=== PATIENT | female | born 1955 | race Caucasian/White ===

== ENCOUNTER → 2017-03-18 | Outpatient (CLI) | payer BC ==
[~2017-03-18] MED LIST: ALBU2.5V4 IH; CALCIUM CARBONATE; FOLI100T PO; HYDR25TA4 PO; NF-ESOM40C PO; NF-TELM20T PO
[2017-03-18 11:30] LABS: BASOPHILS % (AUTO) 0 % (0-10); EOSINOPHILS % (AUTO) 0 % (0-10); LYMPHOCYTES # (AUTO) 0.9 X 10^3 (1.0-4.0); LYMPHOCYTES % (AUTO) 15 % (12-44); MEAN CORPUSCULAR HEMOGLOBIN 28 PG (25-34); MEAN CORPUSCULAR HGB CONC 33 G/DL (32-36); MEAN CORPUSCULAR VOLUME 85 FL (80-99); MEAN PLATELET VOLUME 10.1 FL (7.4-10.4); MONOCYTES # (AUTO) 0.5 X 10^3 (0.0-1.0); MONOCYTES % (AUTO) 8 % (0-12); NEUTROPHILS # (AUTO) 4.6 X 10^3 (1.8-7.8); NEUTROPHILS % (AUTO) 78 % (42-75); PLATELET COUNT 259 10^3/uL (130-400); RED BLOOD COUNT 4.52 10^6/uL (4.35-5.85); RED CELL DISTRIBUTION WIDTH 12.8 % (10.0-14.5)
[2017-03-18 12:09] LABS: ALANINE AMINOTRANSFERASE 26 U/L (0-55); ALBUMIN 4.4 G/DL (3.2-4.5); ANION GAP 8 MMOL/L (5-14); ASPARTATE AMINO TRANSFERASE 26 U/L (5-34); BILIRUBIN,TOTAL 0.4 MG/DL (0.1-1.0); BLOOD UREA NITROGEN 10 MG/DL (7-18); BUN/CREATININE RATIO 14; CALCIUM 9.8 MG/DL (8.5-10.1); CARBON DIOXIDE 30 MMOL/L (21-32); CHLORIDE 100 MMOL/L (98-107); CREATININE SERUM 0.73 MG/DL (0.60-1.30); GFR ESTIMATED > 60; GLUCOSE 91 MG/DL (70-105); POTASSIUM 3.6 MMOL/L (3.6-5.0); SODIUM 138 MMOL/L (135-145); TOTAL PROTEIN 7.7 G/DL (6.4-8.2); hs C REACTIVE PROTEIN 0.29 MG/DL (0.00-0.50)
[2017-03-18 12:45] LABS: ERYTHROCYTE SEDIMENTATION RATE 44 MM/HR (0-30)
[2017-03-19 03:31] LABS: IGE DETAIL 3.7 IU/mL
[2017-03-19 07:35] LABS: INT IGE See Footnote
[2017-03-19 07:36] LABS: IMMUNOGLOBULIN IGG 1332 mg/dL (672-1680); IMMUNOGLOBULIN IGM 192 mg/dL (47-209)
== END ==
LOC: LAB 11:05
PROVIDERS: ATTEND Internal Medicine Critical Care Medicine
DX: J44.9 Chronic obstructive pulmonary disease, unspecified (principal); J47.9 Bronchiectasis, uncomplicated; J42 Unspecified chronic bronchitis; R06.00 Dyspnea, unspecified; Z87.891 Personal history of nicotine dependence
CPT/HCPCS: 36415; 80053; 82784; 82785; 85025; 85652; 86038; 86141; 86430

== ENCOUNTER 2017-03-19 07:27 | Day surgery (SDC) | payer BC ==
[~2017-03-19] VITALS: Ht 167.6 cm; Wt 57.2 kg
[2017-03-19] MEDS ORDERED: NS IV 500 ML 500 ML IV PRN (07:37)
[2017-03-19] MEDS ORDERED: FLUMAZENIL (ROMAZICON) 0.1 MG/ML 5 ML VIAL INJ PRN (07:45)
[2017-03-19] MEDS ORDERED: LIDOCAINE 4% INJ (XYLOCAINE) 5ML AMP INJ ONE (07:45)
[2017-03-19] MEDS ORDERED: LIDOCAINE PF 1% 2 ML AMP INJ PRN (07:45)
[2017-03-19] MEDS ORDERED: NALOXONE 0.4 MG/ML 1 ML (NARCAN) VIAL IVP PRN (07:45)
[2017-03-19] MEDS ORDERED: NS IV 500 ML 500 ML ONE (07:46)
[2017-03-19 08:03] VITALS: BP 153/87
--- NOTE | 2017-03-19 08:05 | Progress Note-Pre Operative ---
Pre-Operative Progress Note H&P Reviewed The H&P was reviewed, patient examined and no changes noted. Date H&P Reviewed: March 19, 2017 Time H&P Reviewed: 08:05 Pre-Operative Diagnosis: KALPESH AVILA DO March 19, 2017 08:05
[2017-03-19 08:09] VITALS: BP 153/87
[2017-03-19] MEDS ORDERED: MIDAZOLAM 2 MG/2 ML (VERSED) VIAL ONE ×4 (08:23→08:59)
[2017-03-19] MEDS ORDERED: fentaNYL INJECTION 100 MCG/2 ML AMP ONE ×2 (08:23)
[2017-03-19] MEDS: fentaNYL INJECTION 100 MCG/2 ML AMP IVP PRN ×5 (08:45→09:03)
[2017-03-19] MEDS: MIDAZOLAM 2 MG/2 ML (VERSED) VIAL IVP PRN ×5 (08:46→09:04)
--- NOTE | 2017-03-19 09:38 | Diagnostic Imaging Report ---
INDICATION: Status post bronchoscopy. COMPARISON: None. FINDINGS: A single frontal radiographic view of the chest was obtained and demonstrates no evidence of pneumothorax or large effusion. There is no focal consolidation. The cardiac silhouette and pulmonary vasculature are within normal limits. The bony structures show no gross acute abnormalities. IMPRESSION: No pneumothorax status post bronchoscopy. Dictated by: Dictated on workstation # [id number]
[2017-03-19 09:40] VITALS: BP 123/66
[2017-03-19 10:00] VITALS: BP 128/75
[2017-03-19] MEDS ORDERED: NF-ESOM40C PO (10:15)
[2017-03-19] MEDS ORDERED: ALBU2.5V4 IH (10:15)
[2017-03-19] MEDS ORDERED: NF-TELM20T PO (10:15)
[2017-03-19] MEDS ORDERED: HYDR25TA4 PO (10:15)
[2017-03-19] MEDS ORDERED: FOLI100T PO (10:15)
[2017-03-19] MEDS ORDERED: CALCIUM CARBONATE (10:15)
[2017-03-19] MEDS ORDERED: LIDOCAINE JELLY 2% (XYLOCAINE) 30 ML TUBE TOP ONE (10:24)
[2017-03-19 10:48] VITALS: BP 128/75
--- NOTE | 2017-03-19 13:12 | Diagnostic Imaging Report ---
EXAMINATION: Intraoperative view of the chest. INDICATION: Bronchoscopy. FLUOROSCOPY TIME: 27 seconds of fluoroscopic time was provided. IMPRESSION: The provided image demonstrates a bronchoscope seen projecting over the perihilar region. The image is not labeled; however, it appears to be on the right side. Dictated by: Dictated on workstation # [id number]
--- NOTE | 2017-03-20 09:37 | Pulmonary Procedures ---
Pulmonary Procedures Date of Procedure Date of Service: March 19, 2017 Bronch Bronchoscopy with bronchoalveolar lavage (BAL), transbronchial washes and, brushes using fluoroscopy Preop DX ILD Postop DX: same Complications: none After informed consent obtained and formal time out pt was sedated using Fentanyl and Versed. Bronchoscope was advanced through the nare and vocal cords. 1% lidocaine was used to anesthetize vocal cords, epiglottis, nahid, and left/right main stem bronchus. An anatomical tour was undertaken down to the segmental bronchi bilaterally. No endobronchial lesions noted. From the RML a bronchoalveolar lavage (BAL), transbronchial washes and, brushes were obtained using fluoroscopy . Pt tolerated procedure well. No complications noted. Stat CXR is pending. KALPESH ODONNELL DO March 20, 2017 09:37
== END 2017-03-19 10:48 | disposition home or self-care (01) ==
LOC: ENDO 07:27
PROVIDERS: ATTEND Internal Medicine Critical Care Medicine
DX: J84.9 Interstitial pulmonary disease, unspecified (principal); J44.9 Chronic obstructive pulmonary disease, unspecified; Z87.891 Personal history of nicotine dependence
CPT/HCPCS: 71010; 87070; 87101; 87116; 87205

== ENCOUNTER → 2017-04-11 | Outpatient (CLI) | payer BC ==
[~2017-04-11] MED LIST changes: +RT-ALBUTEROL SULF 2.5 MG/3 ML PRE-MIX VIAL IH ONE
== END ==
LOC: RT 12:40
PROVIDERS: ATTEND Nurse Practitioner Family
DX: J47.9 Bronchiectasis, uncomplicated (principal); R06.00 Dyspnea, unspecified
CPT/HCPCS: 94060; 94640; 94726; 94729

== ENCOUNTER → 2017-04-29 | Outpatient (CLI) | payer BC ==
[~2017-04-29] MED LIST changes: -RT-ALBUTEROL SULF 2.5 MG/3 ML PRE-MIX VIAL IH ONE
== END ==
LOC: LAB 10:02
PROVIDERS: ATTEND Nurse Practitioner Family
DX: A31.0 Pulmonary mycobacterial infection (principal)
CPT/HCPCS: 36415; 86703

== ENCOUNTER → 2017-05-20 | Outpatient (CLI) | payer BC ==
[~2017-05-20] MED LIST changes: +CATHETER FLUSH 10 ML SYR IV PRN; +IOHEXOL 350 MG/ML 100 ML (OMNIPAQUE 350) VIAL IV ONE; +NS 100 ML (IVPB) BAG IV ONE
[2017-05-20 10:07] LABS: BLOOD UREA NITROGEN 6 MG/DL (7-18); BUN/CREATININE RATIO 8; CREATININE SERUM 0.75 MG/DL (0.60-1.30); GFR ESTIMATED > 60
--- NOTE | 2017-05-20 13:25 | Diagnostic Imaging Report ---
PROCEDURE: CT chest with contrast only. TECHNIQUE: Multiple contiguous axial images were obtained through the chest after administration of intravenous contrast. INDICATION: Chronic cough, COPD, emphysema, and bronchitis. COMPARISON: No priors. FINDINGS: There is mild right greater than left biapical pleural-parenchymal scarring. Some nodular infiltrate in the right middle lobe and to a lesser extent the lateral aspect of the right upper lobe suggestive of pneumonia. Within the right middle lobe, there is some mild cylindrical bronchiectasis as a chronic component. Some mild bronchiectasis in the left lower lobe where there are minimal micronodular infiltrates. There is symmetrical hyperexpansion of the lungs. There is no pneumothorax. No effusion. A vague sub-solid nodule in the right upper lobe measures 6 mm. There is no hilar or mediastinal lymphadenopathy. No thoracic effusion. The aorta is patent and nonaneurysmal. The pulmonary arterial branches are patent. IMPRESSION: Acute on chronic infiltrates with some mild cylindrical bronchiectasis. Thickening of the axial interstitium and micronodular infiltrates involve right middle greater than left lower lobes suggestive of an element of active pneumonia. A small subcentimeter nodule in the right upper lobe warrants followup. Repeat exam in 3-6 months suggested. No effusion, abscess, empyema, or adenopathy. Dictated by: Dictated on workstation # [id number]
== END ==
LOC: RAD 09:19
PROVIDERS: ATTEND Internal Medicine Critical Care Medicine
DX: R91.8 Other nonspecific abnormal finding of lung field (principal); R91.1 Solitary pulmonary nodule
CPT/HCPCS: 36415; 71260; 82565; 84520

== ENCOUNTER → 2017-07-15 12:50 | Outpatient (RCR) | payer BC ==
[2017-06-12 10:12] LABS: CREATININE SERUM 0.7 MG/DL (0.60-1.30)
[~2017-07-15 12:50] MED LIST changes: -CATHETER FLUSH 10 ML SYR IV PRN; -IOHEXOL 350 MG/ML 100 ML (OMNIPAQUE 350) VIAL IV ONE; -NS 100 ML (IVPB) BAG IV ONE
== END | disposition home or self-care (01) ==
LOC: LAB 06-12 09:00 → EDSTATUS 07-30 10:52
PROVIDERS: ATTEND Nurse Practitioner Family
DX: A31.0 Pulmonary mycobacterial infection (principal); J47.9 Bronchiectasis, uncomplicated; J44.9 Chronic obstructive pulmonary disease, unspecified
CPT/HCPCS: 36415; 82565; 84520; 87116

== ENCOUNTER 2017-07-31 13:00 | Outpatient (RCR) | payer BC | END 2017-08-02 | disposition home or self-care (01) | LOC: PULM 13:00 | PROVIDERS: ATTEND Nurse Practitioner Family | DX: J44.9 Chronic obstructive pulmonary disease, unspecified (principal); R06.00 Dyspnea, unspecified; Z87.891 Personal history of nicotine dependence | CPT/HCPCS: 99211 ==

== ENCOUNTER → 2017-09-04 | Outpatient (CLI) | payer BC ==
[~2017-09-04] MED LIST changes: +IOHEXOL 350 MG/ML 100 ML (OMNIPAQUE 350) VIAL IV ONE; +NS 100 ML (IVPB) BAG IV ONE
[2017-09-04 10:30] LABS: BLOOD UREA NITROGEN 7 MG/DL (7-18); BUN/CREATININE RATIO 9; CREATININE SERUM 0.81 MG/DL (0.60-1.30); GFR ESTIMATED > 60
--- NOTE | 2017-09-04 11:28 | Diagnostic Imaging Report ---
INDICATION: Chronic bronchitis. CT chest obtained with IV contrast bolus and compared to 05/20/17 FINDINGS: There are some borderline size nodes in the mediastinum which appear similar to the previous study. A node in the AP window measures about 11 mm which is similar to the prior study. A node just to left mainstem bronchus on the left side measured about 2.0 x 0.8 cm, also unchanged. There are no enlarged hilar nodes or axillary nodes. There is no pleural effusion. There is a small amount of fluid in the pericardium. This does appear mildly increased compared to the prior study. Lung parenchymal windows demonstrate micronodular infiltrates in the right upper lobe and right middle lobe which appears similar to the previous study. There are some micronodular infiltrates in the left lower lobe. There are some mild bronchiectatic changes in the lung bases. IMPRESSION: Scattered micronodular chronic infiltrates in both lungs as above which appears similar to the prior study of 05/20/17. The vague nodular density in the right upper lobe which was described on 05/20/17 is no longer present. Borderline size nodes in the mediastinum are present which may be reactive but has not changed from the previous study. There is no new abnormality seen. There is a mild micronodular infiltrate in the right lower lobe. Compared to the prior study of 05/20/17, the vague nodular density in the right upper lobe appears to have resolved. Dictated by: Dictated on workstation # [id number]
== END ==
LOC: RAD 08:28
PROVIDERS: ATTEND Nurse Practitioner Family
DX: J44.0 Chronic obstructive pulmonary disease with (acute) lower respiratory infection (principal); A31.0 Pulmonary mycobacterial infection
CPT/HCPCS: 36415; 71260; 82565; 84520

== ENCOUNTER 2017-10-09 13:00 | Outpatient (RCR) | payer BC ==
[~2017-10-09 13:00] MED LIST changes: -IOHEXOL 350 MG/ML 100 ML (OMNIPAQUE 350) VIAL IV ONE; -NS 100 ML (IVPB) BAG IV ONE
== END 2017-11-03 | disposition home or self-care (01) ==
LOC: PULM 13:00
PROVIDERS: ATTEND Nurse Practitioner Family
DX: J44.9 Chronic obstructive pulmonary disease, unspecified (principal); R06.00 Dyspnea, unspecified; Z87.891 Personal history of nicotine dependence

== ENCOUNTER → 2017-12-11 | Outpatient (CLI) | payer BC ==
--- NOTE | 2017-12-11 12:10 | Diagnostic Imaging Report ---
PROCEDURE: CT chest without contrast. TECHNIQUE: Multiple contiguous axial images were obtained through the chest without the use of intravenous contrast. INDICATION: Pneumonia. COMPARISON: 09/04/17 FINDINGS: Overall, the tree-in-bud infiltrates in the right upper lobe do persist but have decreased significantly from the prior examination. There is some new bronchiectasis developing in the medial right middle lobe with some reduction of the infiltrates. There has been a slight increase in infiltrates in the left lung base with some development of bronchiectasis medially. A new minimal focus of consolidation is seen in the left upper lobe. Tree-in-bud infiltrates have increased slightly in the right base. There is no pulmonary abscess. The heart size and mediastinal structures are stable. There is no lymphadenopathy. Osseous structures are age-appropriate. No pleural or pericardial effusion is seen. IMPRESSION: 1. Mixed changes with new bronchiectasis in the left medial base and right middle lobe. 2. Faint area of new consolidation in left upper lobe. 3. No pulmonary abscess identified. 4. No lymphadenopathy. Dictated by: Dictated on workstation # [id number]
== END ==
LOC: RAD 11:11
PROVIDERS: ATTEND Nurse Practitioner Family
DX: J42 Unspecified chronic bronchitis (principal); J18.1 Lobar pneumonia, unspecified organism; J47.9 Bronchiectasis, uncomplicated; A31.0 Pulmonary mycobacterial infection; Z87.891 Personal history of nicotine dependence
CPT/HCPCS: 71250

== ENCOUNTER 2018-01-08 05:37 | Outpatient (CLI) | payer BC ==
[~2018-01-08] VITALS: Ht 167.6 cm; Wt 57.2 kg
[2018-01-08] MEDS ORDERED: CETI10TA17 PO (14:35)
[2018-01-08] MEDS ORDERED: CA C1TAB80 PO (14:35)
[2018-01-08] MEDS ORDERED: NF-ESOM40C PO (14:35)
[2018-01-08] MEDS ORDERED: [UNRECOGNIZED DRUG - CODE] IH (14:35)
[2018-01-08] MEDS ORDERED: ETHA400T29 PO (14:35)
[2018-01-08] MEDS ORDERED: TELM40TA3 PO (14:35)
[2018-01-08] MEDS ORDERED: MONT10TA21 PO (14:35)
[2018-01-08] MEDS ORDERED: ERYT-96 PO (14:35)
[2018-01-08] MEDS ORDERED: L.AC1CAP6 PO (14:35)
== END 2018-01-08 14:41 ==
LOC: PREOP 05:37
PROVIDERS: ATTEND Internal Medicine Critical Care Medicine
DX: Z01.818 Encounter for other preprocedural examination (principal); J44.9 Chronic obstructive pulmonary disease, unspecified; J47.9 Bronchiectasis, uncomplicated

== ENCOUNTER → 2018-07-27 | Outpatient (CLI) | payer BC ==
[~2018-07-27] MED LIST changes: +CA C1TAB80 PO; +CETI10TA17 PO; +ERYT-96 PO; +ETHA400T29 PO; +L.AC1CAP6 PO; +MONT10TA21 PO; +TELM40TA3 PO; +[UNRECOGNIZED DRUG - CODE] IH
--- NOTE | 2018-07-27 16:04 | Diagnostic Imaging Report ---
PROCEDURE: CT chest without contrast. TECHNIQUE: Multiple contiguous axial images were obtained through the chest without the use of intravenous contrast. INDICATION: Shortness of breath and COPD. COMPARISON: Comparison made with prior examination 12/11/2017. FINDINGS: There is focal atelectasis and/or pneumonitis in the medial aspect of the left lung base as well as in the right middle lobe. Additional patchy infiltrates are seen in the lateral aspect of the right middle lobe. There is no pleural fluid. There is a small pericardial effusion. There is no pneumothorax. The visualized intra-abdominal structures are unremarkable. There is no pathologically enlarged adenopathy in the chest. IMPRESSION: 1. Focal atelectasis and/or pneumonitis in the right middle lobe and medial aspect left lung base. Additional patchy infiltrates are seen in the right middle lobe and, to a lesser degree, left lower lobe. Findings are nonspecific however likely reflect atypical pneumonia. Recommend clinical correlation and short interval followup to ensure resolution and/or stability. 2. Small pericardial effusion. Dictated by: Dictated on workstation # [id number]
== END ==
LOC: RAD 10:18
PROVIDERS: ATTEND Nurse Practitioner Family
DX: J44.9 Chronic obstructive pulmonary disease, unspecified (principal); I31.3 Pericardial effusion (noninflammatory); A31.0 Pulmonary mycobacterial infection; R91.8 Other nonspecific abnormal finding of lung field; Z87.891 Personal history of nicotine dependence
CPT/HCPCS: 71250

== ENCOUNTER → 2019-02-12 | Outpatient (CLI) | payer BC ==
[~2019-02-12] MED LIST changes: +ALBU2.5V4 NEB; +CATHETER FLUSH 10 ML SYR IV PRN; +ESOM20CA58 PO; +FLUT16SP22 NS; +FLUT1AER INH; +HOLD METFORMIN - RECEIVED CONTRAST 20 ML VIAL IV SCH; +IOHEXOL 350 MG/ML 100 ML (OMNIPAQUE 350) VIAL IV ONE; +KETO120S2 TOP; +MONT10TA24 PO; +NS 50 ML (IVPB) BAG IV ONE
[2019-02-12 11:30] LABS: SODIUM 138 MMOL/L (135-145)
[2019-02-12 11:31] LABS: ALANINE AMINOTRANSFERASE 25 U/L (0-55); ALBUMIN 4.2 GM/DL (3.2-4.5); ALKALINE PHOSPHATASE 101 U/L (40-136); BILIRUBIN,TOTAL 0.3 MG/DL (0.1-1.0); BUN/CREATININE RATIO 8; CALCIUM 9.4 MG/DL (8.5-10.1); CARBON DIOXIDE 20 MMOL/L (21-32); CHLORIDE 98 MMOL/L (98-107); CREATININE SERUM 0.71 MG/DL (0.60-1.30); GFR ESTIMATED > 60; GLUCOSE 85 MG/DL (70-105); POTASSIUM 3.8 MMOL/L (3.6-5.0); TOTAL PROTEIN 7.6 GM/DL (6.4-8.2)
--- NOTE | 2019-02-12 15:36 | Diagnostic Imaging Report ---
PROCEDURE: CT chest with and without contrast. TECHNIQUE: Multiple contiguous axial images were obtained through the chest before and after administration of intravenous contrast. Auto Exposure Controls were utilized during the CT exam to meet ALARA standards for radiation dose reduction. DATE: February 12, 2019. COMPARISON: CT chest July 27, 2018. INDICATION: 63-year-old female, hemoptysis and shortness of breath. FINDINGS: There is tree in bud nodularity in the right upper lobe, right middle lobe, right lower lobe, left lower lobe, and left upper lobe which is also present on prior CT chest exam of July 27, 2018. There is mild pleural-parenchymal scarring in the lung apices. There is a nodular opacity in the posterior aspect of the right upper lobe measuring 12 mm in size on axial image 29 which is a change since prior CT chest. There is very mild right middle lobe bronchiectasis with additional right middle lobe airspace consolidation with air bronchograms. Consolidation was present previously and is similar in overall appearance. There is an ill-defined nodular opacity with hazy adjacent consolidation in the right lower lobe on axial image 74 measuring 1.9 x 1.8 cm in size. This is new since July 27, 2018. Adjacent ill-defined nodular opacity in the right lower lobe on axial image 65 is also new as is the ill-defined right lower lobe pulmonary nodule on axial image 60. There is a left upper lobe pulmonary nodule on image 53 which measures 8 mm in size which is new. There are additional nodular opacities in the lingula on axial image 64 which are also new. There is no pneumothorax. There is no pleural effusion. There is no identified large central pulmonary embolus. There is limited evaluation for segmental and subsegmental pulmonary emboli given timing of the contrast bolus. The heart is not enlarged. There is no pericardial effusion. There are atherosclerotic calcifications. There are AP window lymph nodes which measure up to approximately 10 mm in size on axial image 39. These previously measured approximately 7 mm in short axis. There is a subcarinal lymph node on axial image 45 measuring 1.5 cm in short axis which is similar to prior exam. There are subcentimeter short axis right paratracheal lymph nodes. There is no identified abnormally enlarged axillary lymph node. The imaged portions of the upper abdomen are unremarkable in appearance. There is no identified acute bony abnormality. IMPRESSION: CT CHEST. 1. New multiple ill-defined pulmonary nodules in both lungs. Differential diagnostic considerations would include infectious and inflammatory etiologies, granulomatous processes, and potentially malignant etiology including primary lung neoplasm in metastatic disease. 2. Redemonstrated multifocal tree in bud nodularity with areas of mild bronchiectasis and grossly unchanged airspace consolidation in the right middle lobe. This likely relates to a process spreading via endobronchial means. This appearance can be seen with result of prior mycobacterial infection. This would be the leading differential diagnostic consideration. Dictated by: Dictated on workstation # [id number]
== END ==
LOC: RAD FS 10:49
PROVIDERS: ATTEND Nurse Practitioner
DX: J18.1 Lobar pneumonia, unspecified organism (principal); J47.9 Bronchiectasis, uncomplicated; R91.8 Other nonspecific abnormal finding of lung field; R04.2 Hemoptysis
CPT/HCPCS: 36415; 71270; 80053

== ENCOUNTER 2019-02-15 10:10 | Inpatient (IN) | payer BC ==
[2019-02-15] VITALS (16 sets, daily range): BP systolic 101–168; BP diastolic 64–93
[~2019-02-15] VITALS: Ht 167.6 cm; Wt 63.5 kg
[~2019-02-15 10:10] MED LIST changes: -ALBU2.5V4 NEB; -CATHETER FLUSH 10 ML SYR IV PRN; -ESOM20CA58 PO; -FLUT16SP22 NS; -FLUT1AER INH; -HOLD METFORMIN - RECEIVED CONTRAST 20 ML VIAL IV SCH; -IOHEXOL 350 MG/ML 100 ML (OMNIPAQUE 350) VIAL IV ONE; -KETO120S2 TOP; +LIDOCAINE JELLY 2% 6 ML SYRINGE TOP ONE; +LIDOCAINE PF 1% 2 ML VIAL (OR ONLY) IJ ONE; +LIDOCAINE PF 2% 5 ML (XYLOCAINE) VIAL INJ ONE; -MONT10TA24 PO; -NS 50 ML (IVPB) BAG IV ONE
[2019-02-15] MEDS ORDERED: AZITHROMYCIN 500 MG/NS 250 ML IVPB IV NR ×2 (10:42)
[2019-02-15] MEDS ORDERED: RT-ALBUTEROL/IPRATROPIUM 3 ML (DUONEB) VIAL IH PRN (10:45)
[2019-02-15] MEDS ORDERED: PIPERACILLIN/TAZO 4.5 GM/NS 100 ML IV NR ×2 (10:45)
[2019-02-15] MEDS ORDERED: TUBERCULIN ID ONE (10:45)
--- NOTE | 2019-02-15 11:03 | NUR ---
Patient resting in bed. Verbalized having previous TB skin test with negative results. I educated on our process. No further questions from the patient. Family at bed side. NO other needs at this time.
[2019-02-15 11:15] LABS: BASOPHILS % (AUTO) 0 % (0-10); EOSINOPHILS % (AUTO) 0 % (0-10); HEMATOCRIT 38 % (35-52); HEMOGLOBIN 12.5 G/DL (11.5-16.0); LYMPHOCYTES % (AUTO) 12 % (12-44); MEAN CORPUSCULAR HEMOGLOBIN 27 PG (25-34); MEAN CORPUSCULAR HGB CONC 33 G/DL (32-36); MEAN CORPUSCULAR VOLUME 82 FL (80-99); MEAN PLATELET VOLUME 9.7 FL (7.4-10.4); MONOCYTES # (AUTO) 0.7 X 10^3 (0.0-1.0); MONOCYTES % (AUTO) 9 % (0-12); NEUTROPHILS # (AUTO) 6.4 X 10^3 (1.8-7.8); NEUTROPHILS % (AUTO) 79 % (42-75); PLATELET COUNT 326 10^3/uL (130-400); RED CELL DISTRIBUTION WIDTH 13.8 % (10.0-14.5)
[2019-02-15] MEDS: NS IV 1000 ML 1,000 ML IV SCH ×2 (11:32→20:00)
[2019-02-15 11:38] LABS: ALANINE AMINOTRANSFERASE 22 U/L (0-55); ALBUMIN 4.3 GM/DL (3.2-4.5); ALKALINE PHOSPHATASE 84 U/L (40-136); BILIRUBIN,TOTAL 0.4 MG/DL (0.1-1.0); BUN/CREATININE RATIO 12; CALCIUM 9.7 MG/DL (8.5-10.1); CARBON DIOXIDE 27 MMOL/L (21-32); CHLORIDE 99 MMOL/L (98-107); CREATININE SERUM 0.78 MG/DL (0.60-1.30); GFR ESTIMATED > 60; GLUCOSE 116 MG/DL (70-105); MAGNESIUM 2.2 MG/DL (1.8-2.4); PHOSPHORUS 3.4 MG/DL (2.3-4.7); SODIUM 135 MMOL/L (135-145); TOTAL PROTEIN 7.6 GM/DL (6.4-8.2)
--- NOTE | 2019-02-15 11:42 | Diagnostic Imaging Report ---
INDICATION: Hemoptysis and pneumonia. Time of exam 1100 a.m. Correlation is made with prior exam from 01/14/2018. Heart size is stable. Airspace infiltrate has developed in the right mid lung. There may be some minimal patchy infiltrate right upper lobe as well. Left lung is fairly clear. No effusion or pneumothorax is seen. IMPRESSION: Development of patchy airspace infiltrate in the right lung consistent with pneumonia when compared with exam from 01/14/2018. Dictated by: Dictated on workstation # [id number]
[2019-02-15] MEDS: ENOXAPARIN 40 MG/0.4 ML (LOVENOX) SYR SC SCH (11:45)
[2019-02-15] MEDS: methylPREDNISolone 40 MG/ML (Solu-MEDROL) VIAL IV SCH ×3 (11:45→23:07)
[2019-02-15] MEDS: FAMOTIDINE 20 MG (PEPCID) TABLET PO SCH (11:45)
[2019-02-15 12:01] LABS: BILIRUBIN,URINE NEGATIVE (NEGATIVE); CLARITY,URINE CLEAR; COLOR,URINE YELLOW; GLUCOSE, URINE (UA) NEGATIVE (NEGATIVE); KETONES,URINE NEGATIVE (NEGATIVE); LEUKOCYTE ESTERASE ,URINE NEGATIVE (NEGATIVE); NITRITE,URINE NEGATIVE (NEGATIVE); PH,URINE 7 (5-9); PROTEIN,URINE NEGATIVE (NEGATIVE); UROBILINOGEN,URINE NORMAL (NORMAL)
[2019-02-15 12:17] LABS: BACTERIA,URINE NEGATIVE /HPF
[2019-02-15] MEDS ORDERED: MONT10TA24 PO (12:49)
[2019-02-15] MEDS ORDERED: FLUT1AER INH (12:49)
[2019-02-15] MEDS ORDERED: ALBU2.5V4 NEB (12:49)
[2019-02-15] MEDS ORDERED: FLUT16SP22 NS (12:57)
[2019-02-15] MEDS ORDERED: ESOM20CA58 PO (12:57)
[2019-02-15] MEDS ORDERED: KETO120S2 TOP (12:57)
--- NOTE | 2019-02-15 13:17 | NUR ---
WENT OVER THE EXT MED HX WITH THE PATIENT AND SHE VERIFIED HOW SHE TAKES HER MEDICATIONS. SHE TAKES THE FOLLOWING OTC: VIACTIV 2 DAILY ZYRTEC 10MG DAILY NEXIUM OTC DAILY PROBIOTIC DAILY
[2019-02-15] MEDS ORDERED: RT-ALBUTEROL/IPRATROPIUM 3 ML (DUONEB) VIAL IH SCH (14:00)
[2019-02-15] MEDS: PIPERACILLIN/TAZO 4.5 GM/NS 100 ML IV SCH ×2 (17:25)
[2019-02-15] MEDS: RT-ALBUTEROL/IPRATROPIUM 3 ML (DUONEB) VIAL IH SCH (20:48)
[2019-02-16] VITALS (18 sets, daily range): BP systolic 109–145; BP diastolic 55–79
[2019-02-16] MEDS: PIPERACILLIN/TAZO 4.5 GM/NS 100 ML IV SCH ×6 (01:55→17:42)
[2019-02-16 03:57] LABS: BASOPHILS % (AUTO) 0 % (0-10); EOSINOPHILS % (AUTO) 0 % (0-10); HEMATOCRIT 34 % (35-52); HEMOGLOBIN 11.3 G/DL (11.5-16.0); LYMPHOCYTES # (AUTO) 0.5 X 10^3 (1.0-4.0); LYMPHOCYTES % (AUTO) 8 % (12-44); MEAN CORPUSCULAR HEMOGLOBIN 27 PG (25-34); MEAN CORPUSCULAR HGB CONC 33 G/DL (32-36); MEAN CORPUSCULAR VOLUME 82 FL (80-99); MEAN PLATELET VOLUME 10.3 FL (7.4-10.4); MONOCYTES # (AUTO) 0.1 X 10^3 (0.0-1.0); MONOCYTES % (AUTO) 1 % (0-12); NEUTROPHILS # (AUTO) 5.9 X 10^3 (1.8-7.8); NEUTROPHILS % (AUTO) 91 % (42-75); PLATELET COUNT 267 10^3/uL (130-400); RED CELL DISTRIBUTION WIDTH 13.2 % (10.0-14.5); WHITE BLOOD COUNT 6.5 10^3/uL (4.3-11.0)
[2019-02-16 04:12] LABS: BUN/CREATININE RATIO 11; CARBON DIOXIDE 19 MMOL/L (21-32); CHLORIDE 108 MMOL/L (98-107); CREATININE SERUM 0.73 MG/DL (0.60-1.30); GFR ESTIMATED > 60; GLUCOSE 136 MG/DL (70-105); MAGNESIUM 2.4 MG/DL (1.8-2.4); PHOSPHORUS 2.6 MG/DL (2.3-4.7); POTASSIUM 3.8 MMOL/L (3.6-5.0); SODIUM 139 MMOL/L (135-145)
[2019-02-16] MEDS: methylPREDNISolone 40 MG/ML (Solu-MEDROL) VIAL IV SCH ×4 (04:44→21:58)
[2019-02-16] MEDS: NS IV 1000 ML 1,000 ML IV SCH ×2 (04:44→13:35)
[2019-02-16 05:43] LABS: LYMPHOCYTES % (MANUAL) 5 %; MONOCYTES % (MANUAL) 2 %; NEUTROPHILS % (MANUAL) 93 %
[2019-02-16] MEDS ORDERED: KCL 20 MEQ TAB (K-DUR) PO SCH (06:00)
[2019-02-16] MEDS ORDERED: POTASSIUM CL 10MEQ/50ML IVPB 50 ML IV SCH (06:00)
[2019-02-16] MEDS: RT-ALBUTEROL/IPRATROPIUM 3 ML (DUONEB) VIAL IH SCH ×3 (06:00→19:29)
[2019-02-16] MEDS ORDERED: MAGNESIUM 1 GM/100 ML IVPB 100 ML IV SCH (06:00)
[2019-02-16] MEDS ORDERED: MIDAZOLAM 5 MG/5 ML (VERSED) VIAL ONE (06:04)
[2019-02-16] MEDS ORDERED: fentaNYL INJECTION 100 MCG/2 ML AMP ONE (06:05)
[2019-02-16] MEDS ORDERED: MIDAZOLAM 5 MG/5 ML (VERSED) VIAL IVP ONE (06:45)
[2019-02-16] MEDS ORDERED: ALPRAZolam 0.5 MG (XANAX) TAB PO PRN (06:45)
[2019-02-16] MEDS ORDERED: guaiFENesin/CODEINE (ROBITUSSIN AC) 10ML UDC PO PRN (06:45)
[2019-02-16] MEDS ORDERED: fentaNYL INJECTION 100 MCG/2 ML AMP IVP PRN (06:45)
[2019-02-16] MEDS ORDERED: morphine INJ 4 MG/ML 1 ML (VIAL/SYRINGE) IVP PRN (06:45)
--- NOTE | 2019-02-16 06:45 | Pulmonary Procedures ---
Pulmonary Procedures Date of Procedure Date of Service: Feb 16, 2019 Bronch Bronchoscopy with bilateral bronchial washes. Preop DX Hemoptysis Postop DX: No endobronchial lesion - no signs of hemoptysis Complications: none After informed consent obtained and formal time out pt was sedated using Fentanyl and Versed. Bronchoscope was advanced through the nare and vocal cords. 1% lidocaine was used to anesthetize vocal cords, epiglottis, nahid, and left/right main stem bronchus. An anatomical tour was undertaken down to the segmental bronchi bilaterally. No endobronchial lesions noted. Bilateral bronchial washes were obtained. Pt tolerated procedure well. No complications noted. Stat CXR is pending. KALPESH ODONNELL DO Feb 16, 2019 06:45
[2019-02-16] MEDS ORDERED: fentaNYL INJECTION 100 MCG/2 ML AMP IVP ONE (06:47)
--- NOTE | 2019-02-16 06:50 | Pulmonary Consultation ---
History of Present Illness History of Present Illness Date of Consultation 02/16/19 06:45 Time Seen by Provider: 06:45 Date of Admission History of Present Illness 63yo with hx of MAC presented as direct admit from my office secondary to worsening CT of chest and hemoptysis. Pt Denies fever, NS, Chills. She has not coughed up this amount of blood in the past. She also complains of worsening SOB however no wheezing. Pt has had multiple bronchoscopies in the past. She complains of thick yellow sputum that is difficult to cough up. Pt is known to ID doctor in [place]. I am consulted for pulmonary/ICU management. Allergies and Home Medications Allergies Coded Allergies: Sulfa (Sulfonamide Antibiotics) (Unverified Allergy, Mild, 01/08/18) Home Medications Albuterol Sulfate 2.5 Mg/3 Ml Vial.neb, 3 ML NEB Q4H PRN for SHORTNESS OF BREATH , (Reported) Ca Carbonate/Vitamin D3/Vit K 1 Each Tab.chew, 2 TAB.CHEW PO DAILY, (Reported) Cetirizine HCl 10 Mg Tablet, 10 MG PO DAILY, (Reported) Esomeprazole Magnesium 20 Mg Capsule.dr, 20 MG PO DAILY, (Reported) Fluticasone Propionate 16 Gm Poplar.susp, 1 SPRAY NS DAILY PRN for ALLERGIES, ( Reported) Fluticasone/Vilanterol 1 Each Blst.w.dev, 1 PUFF INH DAILY, (Reported) Hydrochlorothiazide 25 Mg Tablet, 25 MG PO DAILY, (Reported) Ketoconazole 120 Ml Shampoo, TOP Q48H, (Reported) L.acidoph & Paracasei,B.lactis 1 Each Capsule, 1 CAP PO DAILY, (Reported) Montelukast Sodium 10 Mg Tablet, 10 MG PO DAILY, (Reported) Telmisartan 40 Mg Tablet, 40 MG PO DAILY, (Reported) Past Njuvhja-Ytyyfn-Tikuxr Hx Patient Social History Alcohol Use: Denies Use Recreational Drug Use: No Former Smoker, Quit: Jan 08, 1994 Recent Foreign Travel: No Contact w/Someone Who Travel: No Recent Hopitalizations: No Immunizations Up To Date Date of Pneumonia Vaccine: Feb 03, 2017 Date of Influenza Vaccine: Aug 18, 2017 Seasonal Allergies Seasonal Allergies: Yes Past Medical History Surgeries: Yes Hysterectomy Respiratory: Yes Chronic Bronchitis, COPD Currently Using CPAP: No Currently Using BIPAP: No Cardiac: Yes Hypertension Neurological: Yes (hx of brain aneryusm) Reproductive Disorders: No Female Reproductive Disorders: Denies 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 Sexually Transmitted Disease: No HIV/AIDS: No Genitourinary: Yes UTI-Chronic Gastrointestinal: No Gastroesophageal Reflux Musculoskeletal: No Endocrine: No HEENT: No Tinnitis Loss of Vision: Denies Hearing Impairment: Denies Cancer: No Psychosocial: No Anxiety, Depression Integumentary: No Blood Disorders: No Adverse Reaction/Blood Tranf: No Review of Systems Time Seen by Provider: 06:48 Constitutional: Sweats, Weakness, Malaise; No: Fever, Chills, Other Eyes: No: Pain, Vision change, Conjunctivae inflammation, Eyelid inflammation, Other, Redness ENT: Nose congestion; No: Ear pain, Ear discharge, Nose pain, Nose discharge, Mouth pain, Mouth swelling, Throat pain, Throat swelling, Other Respiratory: Cough, Shortness of breath, SOB with excertion, Hemoptysis, Pleuritic Pain, Sputum; No: Wheezing Cardiovascular: No: Palpitations, Orthopnea, Paroxysmal Noc. Dyspnea, Edema Gastrointestinal: No: Nausea, Vomiting, Diarrhea Neurological: Weakness Sepsis Event Evaluation Height, Weight, BMI Height: 5'6.00" Weight: 137lbs. 3.0oz. 62.886859nx; 21.2 BMI Method: Exam Exam Vital Signs Date Time Temp Pulse Resp B/P (MAP) Pulse Ox O2 Delivery O2 Flow Rate FiO2 02/16/19 06:00 67 14 145/79 (101) 100 Room Air 02/16/19 05:00 61 16 129/70 (89) 98 Room Air 02/16/19 04:00 98 Room Air 02/16/19 04:00 69 28 130/78 (95) 98 Room Air 02/16/19 04:00 97.3 02/16/19 03:00 59 28 132/68 (89) 97 Room Air 02/16/19 02:00 59 30 117/66 (83) 96 Room Air 02/16/19 01:00 65 02/16/19 01:00 65 17 109/55 (73) 96 Room Air 02/16/19 00:00 97.7 02/16/19 00:00 98 Room Air 02/16/19 00:00 62 17 129/68 (88) 97 Room Air 02/15/19 23:00 62 18 123/75 (91) 95 Room Air 02/15/19 22:00 78 21 135/69 (91) 96 Room Air 02/15/19 21:00 70 13 110/64 (79) 100 Room Air 02/15/19 20:48 95 Room Air 02/15/19 20:00 98 Room Air 02/15/19 20:00 97.3 02/15/19 20:00 74 27 141/79 (99) 97 Room Air 02/15/19 19:00 73 02/15/19 19:00 73 17 123/89 (100) 98 Room Air 02/15/19 18:00 67 16 143/73 (96) 99 Room Air 02/15/19 17:30 97.0 02/15/19 17:00 85 24 133/81 (98) 95 Room Air 02/15/19 16:31 99 Room Air 02/15/19 16:00 81 23 119/74 (89) 96 Room Air 02/15/19 15:00 76 19 122/74 (90) 95 Room Air 02/15/19 14:06 96 Room Air 02/15/19 14:00 84 32 101/74 (83) 96 Room Air 02/15/19 13:00 86 02/15/19 13:00 89 32 129/77 (94) 97 Room Air 02/15/19 12:00 75 19 120/78 (92) 96 Room Air 02/15/19 11:49 99 Room Air 02/15/19 11:00 88 20 142/90 (107) 95 Room Air 02/15/19 10:45 70 19 157/93 (114) 96 Room Air 02/15/19 10:44 99 Room Air 02/15/19 10:30 82 20 150/93 (112) 94 Room Air 02/15/19 10:24 80 02/15/19 10:10 97.1 75 19 168/85 (112) 99 Room Air I & O 02/16/19 07:00 Intake Total 1870 ml Output Total 300 ml Balance 1570 ml Height & Weight Height: 5'6.00" Weight: 137lbs. 3.0oz. 62.438788ui; 21.2 BMI Method: General Appearance: WD/WN, Anxious, Mild Distress, Thin HEENT: PERRL/EOMI, Normal ENT Inspection, Pharynx Normal Neck: Full Range of Motion, Non Tender, Supple Respiratory: No Accessory Muscle Use, No Respiratory Distress, Decreased Breath Sounds Cardiovascular: Regular Rate, Rhythm, No Edema, No Gallop Capillary Refill: Less Than 3 Seconds Gastrointestinal: normal bowel sounds, non tender, soft, no organomegaly, no pulsatile mass Extremity: Normal Capillary Refill, No Pedal Edema Neurologic/Psychiatric: Alert, Oriented x3, No Motor/Sensory Deficits Skin: Normal Color, Warm/Dry Lymphatic: No Adenopathy Results Lab Laboratory Tests 02/15/19 11:05 02/16/19 03:25 Assessment/Plan Assessment/Plan PNA and hemoptysis r/o TB - Doubt TB -TB isolation until r/o -Pt has hx of MAC not currently on treatment -Will do bronchoscopy today -Azithromycin, Zosyn -PPD pending Persistent sometimes productive cough -Robitussin AC -SVNS Hyperchloremia -Decrease IVF to KVO Mucous plugging -Bronchoscopy today -Add mucinex -SVNs COPDAE - Hx of moderate Emphysema -SVNs -montior -Solumedrol 40 IV Q12 Anxiety -Will start Xanax for now Anemia -Monitor KALPESH ODONNELL DO Feb 16, 2019 06:50
--- NOTE | 2019-02-16 07:02 | Diagnostic Imaging Report ---
INDICATION: Post bronchoscopy. COMPARISON: 02/16/2019 at 3:14 AM. FINDINGS: Right basilar heterogeneous consolidations are unchanged. No pleural effusion or pneumothorax. Normal cardiomediastinal silhouette. IMPRESSION: 1. No pneumothorax. 2. Unchanged right basilar heterogeneous consolidations. Dictated by: Dictated on workstation # [id number]
[2019-02-16] MEDS: FAMOTIDINE 20 MG (PEPCID) TABLET PO SCH (08:00)
[2019-02-16] MEDS: guaiFENesin (MUCINEX) 600 MG TAB PO SCH ×2 (08:00→21:58)
[2019-02-16] MEDS: LORATADINE (CLARITIN) 10 MG TAB PO SCH (08:00)
[2019-02-16] MEDS: AZITHROMYCIN 250 MG/NS 250 ML IVPB IV SCH ×2 (08:01)
--- NOTE | 2019-02-16 08:34 | Diagnostic Imaging Report ---
INDICATION: Hemoptysis, pneumonia.. TECHNIQUE: Single view chest 3:16 AM. CORRELATION STUDY: 02/15/2019 FINDINGS: Heart size and vasculature generally stable. Lung marroquin are hyperinflated with changes reflecting COPD. More focal superimposed infiltrate at the right mid to lower lung field persist overall appears slightly increased in severity. A few scattered patchy areas nodularity throughout the remaining lung marroquin are present. Parenchymal pulmonary destructive changes not otherwise suggested. IMPRESSION: 1. Scattered patchy infiltrates most pronounced in the right mid to lower lung field overall appears slightly increased from previous imaging. Findings are superimposed on chronic lung disease. Dictated by: Dictated on workstation # [id number]
[2019-02-16] MEDS ORDERED: methylPREDNISolone 40 MG/ML (Solu-MEDROL) VIAL IV SCH (09:00)
[2019-02-16] MEDS: NAPROXEN 250 MG (NAPROSYN) TABLET PO PRN (10:23)
[2019-02-16] MEDS: ENOXAPARIN 40 MG/0.4 ML (LOVENOX) SYR SC SCH (11:12)
--- NOTE | 2019-02-16 13:18 | History & Physical-Hospitalist ---
History of Present Illness HPI/Chief Complaint The patient is a 63-year-old white female admitted by Dr. Mcdonough to the hospitalist service. She has a past history of MAC. She states that she took this or max from April 2017 through August 2018. She recently coughed up some blood which showed a alarmed Dr. Mcdonough. She states that since she had completed her course for treatment she has gained 15 pounds and feels better than she has in the past 5 years. Source: patient, family Exam Limitations: no limitations Date Seen 02/16/19 Time Seen by a Provider: 13:10 Attending Physician Raj Bhatia MD PCP No,Local Physician Referring Physician Date of Admission Feb 15, 2019 at 10:10 Home Medications & Allergies Home Medications Reviewed patient Home Medication Reconciliation performed by pharmacy medication reconciliations certified control systems technician and/or nursing. Patients Allergies have been reviewed. Allergies Allergies Coded Allergies Sulfa (Sulfonamide Antibiotics) (Unverified Allergy, Mild, 01/08/18) Past Ctkibse-Ssgptb-Hajleb Hx Past Med/Social Hx: Reviewed Nursing Past Med/Soc Hx Patient Social History Alcohol Use: Denies Use Recreational Drug Use: No Former Smoker, Quit: Jan 08, 1994 Physical Abuse Screen: No Sexual Abuse: No Recent Foreign Travel: No Contact w/other who traveled: No Recent Hopitalizations: No Immunizations Up To Date Date of Pneumonia Vaccine: Feb 03, 2017 Date of Influenza Vaccine: Aug 18, 2017 Seasonal Allergies Seasonal Allergies: Yes Past Medical History Surgeries: Hysterectomy Currently Using CPAP: No Currently Using BIPAP: No Cardiac: Hypertension Reproductive: No Sexually Transmitted Disease: No HIV/AIDS: No Female Reproductive Disorders: Denies Hysterectomy Genitourinary: UTI-Chronic Gastrointestinal: Gastroesophageal Reflux HEENT: Tinnitis Loss of Vision: Denies Hearing Impairment: Denies Psychosocial: Anxiety, Depression History of Blood Disorders: No Adverse Reaction to Blood Billings: No Review of Systems Constitutional: no symptoms reported EENTM: no symptoms reported Respiratory: see HPI Cardiovascular: no symptoms reported Gastrointestinal: no symptoms reported Genitourinary: no symptoms reported Musculoskeletal: no symptoms reported Skin: no symptoms reported Psychiatric/Neurological: No Symptoms Reported Physical Exam Physical Exam Vital Signs Vital Signs - First Documented 02/15/19 10:10 Temp 97.1 Pulse 75 Resp 19 B/P (MAP) 168/85 (112) Pulse Ox 99 O2 Delivery Room Air Capillary Refill : Less Than 3 Seconds Height, Weight, BMI Height: 5'6.00" Weight: 137lbs. 3.0oz. 62.112824av; 21.2 BMI Method: General Appearance: No Apparent Distress, WD/WN Eyes: Bilateral Eye Normal Inspection HEENT: Normal ENT Inspection Neck: Full Range of Motion, Normal Inspection, Non Tender Respiratory: Chest Non Tender, Lungs Clear, Normal Breath Sounds, No Accessory Muscle Use, No Respiratory Distress Cardiovascular: Regular Rate, Rhythm, No Edema, No Gallop, No JVD, No Murmur, Normal Peripheral Pulses Gastrointestinal: Normal Bowel Sounds, No Organomegaly, No Pulsatile Mass, Non Tender Back: Normal Inspection, No CVA Tenderness, No Vertebral Tenderness Extremity: Normal Capillary Refill, Normal Inspection, Normal Range of Motion, Non Tender, No Calf Tenderness, No Pedal Edema Neurologic/Psychiatric: Alert, Oriented x3, No Motor/Sensory Deficits, Normal Mood/Affect Skin: Normal Color, Warm/Dry Lymphatic: No Adenopathy Results Results/Procedures Labs Laboratory Tests 02/15/19 11:05 02/16/19 03:25 Patient resulted labs reviewed. Assessment/Plan Admission Diagnosis Hemoptysis. Recent history of Mycobacterium avium complex. Admission Status: Observation Clinical Quality Measures DVT/VTE Risk/Contraindication: Risk Factor Score Per Nursin RFS Level Per Nursing on Admit: 4+=Very High RAJ BHATIA MD Feb 16, 2019 13:18
[2019-02-16] MEDS: MONTELUKAST 10 MG (SINGULAIR) TAB PO SCH (21:58)
[2019-02-17] VITALS (7 sets, daily range): BP systolic 90–154; BP diastolic 62–81
[2019-02-17] MEDS: PIPERACILLIN/TAZO 4.5 GM/NS 100 ML IV SCH ×6 (01:45→16:22)
[2019-02-17 04:43] LABS: BASOPHILS % (AUTO) 0 % (0-10); EOSINOPHILS % (AUTO) 0 % (0-10); HEMATOCRIT 31 % (35-52); HEMOGLOBIN 10.1 G/DL (11.5-16.0); LYMPHOCYTES # (AUTO) 0.7 X 10^3 (1.0-4.0); LYMPHOCYTES % (AUTO) 4 % (12-44); MEAN CORPUSCULAR HEMOGLOBIN 27 PG (25-34); MEAN CORPUSCULAR HGB CONC 33 G/DL (32-36); MEAN CORPUSCULAR VOLUME 84 FL (80-99); MEAN PLATELET VOLUME 10.4 FL (7.4-10.4); MONOCYTES # (AUTO) 0.4 X 10^3 (0.0-1.0); MONOCYTES % (AUTO) 2 % (0-12); NEUTROPHILS # (AUTO) 18.2 X 10^3 (1.8-7.8); NEUTROPHILS % (AUTO) 94 % (42-75); PLATELET COUNT 265 10^3/uL (130-400); RED CELL DISTRIBUTION WIDTH 13.9 % (10.0-14.5); WHITE BLOOD COUNT 19.3 10^3/uL (4.3-11.0)
[2019-02-17] MEDS: methylPREDNISolone 40 MG/ML (Solu-MEDROL) VIAL IV SCH ×4 (05:03→22:58)
[2019-02-17 05:07] LABS: BAND NEUTROPHILS 6 %; BASOPHILS % (MANUAL) 0 %; BUN/CREATININE RATIO 17; CALCIUM 8.5 MG/DL (8.5-10.1); CARBON DIOXIDE 20 MMOL/L (21-32); CHLORIDE 109 MMOL/L (98-107); CREATININE SERUM 0.75 MG/DL (0.60-1.30); ELLIPT/OVALOCYTES SLIGHT; EOSINOPHILS % (MANUAL) 0 %; GFR ESTIMATED > 60; GLUCOSE 136 MG/DL (70-105); LYMPHOCYTES % (MANUAL) 2 %; MONOCYTES % (MANUAL) 1 %; NEUTROPHILS % (MANUAL) 91 %; POTASSIUM 3.6 MMOL/L (3.6-5.0); SODIUM 138 MMOL/L (135-145)
[2019-02-17] MEDS: RT-ALBUTEROL/IPRATROPIUM 3 ML (DUONEB) VIAL IH SCH ×3 (06:45→19:42)
--- NOTE | 2019-02-17 07:22 | Pulmonary Progress Note ---
Subjective Time Seen by a Provider: 07:17 Subjective/Events-last exam PT still complains of hemoptysis - No sign of Blood during bronchoscopy. Sepsis Event Evaluation Height, Weight, BMI Height: 5'6.00" Weight: 140lbs. 0.0oz. 63.121766ip; 21.2 BMI Method: Exam Exam Vital Signs Date Time Temp Pulse Resp B/P (MAP) Pulse Ox O2 Delivery O2 Flow Rate FiO2 02/17/19 06:45 96 Room Air 02/17/19 04:00 96.9 55 20 138/70 (92) 97 Room Air 02/17/19 03:48 56 02/17/19 01:00 97.0 75 20 90/68 (75) 97 Room Air 02/16/19 22:01 58 130/64 (86) 97 Room Air 02/16/19 21:00 97 Room Air 02/16/19 20:00 96.8 02/16/19 19:52 53 02/16/19 19:29 99 Room Air 02/16/19 16:18 97 Room Air 02/16/19 16:00 58 22 138/73 (94) 97 Room Air 02/16/19 15:00 54 15 113/63 (80) 96 Room Air 02/16/19 14:00 63 24 124/64 (84) 99 Room Air 02/16/19 14:00 97.3 02/16/19 13:42 98 Room Air 02/16/19 13:00 65 21 133/77 (95) 99 Room Air 02/16/19 12:55 62 02/16/19 12:00 98 Room Air 02/16/19 12:00 69 34 114/71 (85) 98 Room Air 02/16/19 11:00 79 18 126/67 (86) 97 Room Air 02/16/19 10:00 74 18 134/77 (96) 99 Room Air 02/16/19 09:00 75 18 135/78 (97) 99 Room Air 02/16/19 08:34 98 Room Air 02/16/19 08:15 96.7 02/16/19 08:00 70 16 135/75 (95) 96 Room Air I & O 02/17/19 07:00 Intake Total 3820 ml Balance 3820 ml Height & Weight Height: 5'6.00" Weight: 140lbs. 0.0oz. 63.120708ed; 21.2 BMI Method: General Appearance: No Apparent Distress, WD/WN HEENT: Normal ENT Inspection Neck: Full Range of Motion, Normal Inspection, Non Tender Respiratory: Chest Non Tender, Lungs Clear, Normal Breath Sounds, No Accessory Muscle Use, No Respiratory Distress Cardiovascular: Regular Rate, Rhythm, No Edema, No Gallop, No JVD, No Murmur, Normal Peripheral Pulses Capillary Refill: Less Than 3 Seconds Gastrointestinal: normal bowel sounds, non tender, soft, no organomegaly, no pulsatile mass Extremity: Normal Capillary Refill, Normal Inspection, Normal Range of Motion, Non Tender, No Calf Tenderness, No Pedal Edema Neurologic/Psychiatric: Alert, Oriented x3, No Motor/Sensory Deficits, Normal Mood/Affect Skin: Normal Color, Warm/Dry Lymphatic: No Adenopathy Results Lab Laboratory Tests 02/15/19 11:05 02/16/19 03:25 02/17/19 03:45 Assessment/Plan Assessment/Plan PNA and hemoptysis r/o TB - Doubt TB -TB isolation until r/o -Pt has hx of MAC not currently on treatment -S/P bronchoscopy-- await C&S -Continue Azithromycin, Zosyn -PPD pending Anemia -PT may need EGD josafat if hemoptysis continues -Will D/C lovenox -Check PT, PTT, and INR -Check occult stool Persistent sometimes productive cough -Robitussin AC -SVNS Hyperchloremia -SL IVF Mucous plugging - mucinex -SVNs COPDAE - Hx of moderate Emphysema -SVNs -montior -Solumedrol 40 IV Q12 Anxiety -Will start Xanax for now Anemia -Monitor KALPESH ODONNELL DO Feb 17, 2019 07:22
[2019-02-17 07:57] LABS: INR 1.1 (0.8-1.4); PROTHROMBIN TIME PATIENT 14.8 SEC (12.2-14.7)
--- NOTE | 2019-02-17 08:52 | Diagnostic Imaging Report ---
INDICATION: Hemoptysis and pneumonia. Frontal chest obtained at 4:31 a.m. is compared to yesterday. FINDINGS: Heart is top limits normal in size. Mediastinal silhouette is unremarkable. There is diffuse interstitial prominence again noted with focal alveolar infiltrate in the right base appearing mildly worsened compared to yesterday. There is no pneumothorax or gross pleural fluid. IMPRESSION: Stable diffuse interstitial prominence with mild worsening of alveolar infiltrate in right lung base compared to the prior study. Dictated by: Dictated on workstation # [id number]
--- NOTE | 2019-02-17 09:17 | Progress Note-Hospitalist ---
Subjective HPI/CC On Admission Date Seen by Provider: Feb 17, 2019 Time Seen by Provider: 09:45 The patient is a 63-year-old white female admitted by Dr. Mcdonough to the hospitalist service. She has a past history of MAC. She states that she took this or max from April 2017 through August 2018. She recently coughed up some blood which showed a alarmed Dr. Mcdonough. She states that since she had completed her course for treatment she has gained 15 pounds and feels better than she has in the past 5 years. Objective Exam Vital Signs Vital Signs Date Time Temp Pulse Resp B/P (MAP) Pulse Ox O2 Delivery O2 Flow Rate FiO2 02/17/19 11:50 97.2 60 20 136/71 (92) 97 Room Air Capillary Refill : Less Than 3 Seconds General Appearance: No Apparent Distress, WD/WN HEENT: Normal ENT Inspection Neck: Full Range of Motion, Normal Inspection, Non Tender Respiratory: Chest Non Tender, Lungs Clear, Normal Breath Sounds, No Accessory Muscle Use, No Respiratory Distress Cardiovascular: Regular Rate, Rhythm, No Edema, No Gallop, No JVD, No Murmur, Normal Peripheral Pulses Gastrointestinal: Normal Bowel Sounds, No Organomegaly, No Pulsatile Mass, Non Tender Back: Normal Inspection, No CVA Tenderness, No Vertebral Tenderness Extremity: Normal Capillary Refill, Normal Inspection, Normal Range of Motion, Non Tender, No Calf Tenderness, No Pedal Edema Neurologic/Psychiatric: Alert, Oriented x3, No Motor/Sensory Deficits, Normal Mood/Affect Skin: Normal Color, Warm/Dry Lymphatic: No Adenopathy Results/Procedures Lab Laboratory Tests 02/17/19 03:45 Patient resulted labs reviewed. Clinical Quality Measures DVT/VTE Risk/Contraindication: Risk Factor Score Per Nursin RFS Level Per Nursing on Admit: 4+=Very High MARTIN FARR DO Feb 17, 2019 09:17
[2019-02-17] MEDS: guaiFENesin (MUCINEX) 600 MG TAB PO SCH ×2 (10:13→20:09)
[2019-02-17] MEDS: FAMOTIDINE 20 MG (PEPCID) TABLET PO SCH (10:13)
[2019-02-17] MEDS: LORATADINE (CLARITIN) 10 MG TAB PO SCH (10:13)
[2019-02-17] MEDS: AZITHROMYCIN 250 MG/NS 250 ML IVPB IV SCH ×2 (10:14)
[2019-02-17] MEDS ORDERED: ONDANSETRON 4 MG/2 ML (SDV) Z0FRAN IVP PRN (10:30)
--- NOTE | 2019-02-17 13:46 | Progress Note-Hospitalist ---
Progress Note Progress Notes/Assess & Plan Date Seen 02/17/19 Time Seen by Provider: 13:44 Assessment & Plan The patient reports that she coughed up some blood today. Previously this had not been substantiated. She does not state that she had black stools and she has not been having diarrhea. Her bronchoscopy results are pending. Her hemoglobin has fallen from 12-10. Physical exam: She is bright and alert. Lungs are clear to auscultation. CV is regular without murmur. Impression: Reported hemoptysis this morning. 2.history of MAC. Plan: May require GI endoscopy SUSAN BHATIA MD Feb 17, 2019 13:46
--- NOTE | 2019-02-17 13:59 | NUR ---
TB skin test negative. Still waiting on AFB smear and Qgold test to rule out TB and take her out of Isolation. Patient education done. Family at bedside. No other questions.
--- NOTE | 2019-02-17 14:14 | NUR ---
Patients AFB smear negative. Dr Mcdonough Notified and patient taken out of isolation. Patient educated and has not further questions. Courtney Final Operations Technician at bedside with patient. LUCAS Wellington Notified also.
--- NOTE | 2019-02-17 15:09 | NUR ---
1440 Transferred patient to 4th floor to 424. In good spirits. VSS, in no apparent distress. Receiving RN given report via phone prior and there at bedside during arrival.
--- NOTE | 2019-02-17 15:30 | NUR ---
pt is Hindu and shared about her kristy in God. States her suicided over 20 years ago, and she has a boyfriend and grandson with whom she is close. Pt received news during our visit that she was not TB positive. We thanked God together, and take out waiter/waitress offered words of encouragement.
--- NOTE | 2019-02-17 16:24 | Conscious Sedation/ASA ---
Conscious Sedation Pre-Proced Time 16:20 ASA Score 2 For ASA 3 and 4: Consider anesthesia and medical clearance. Also, for patients with a history of failed moderate sedation consider anesthesia. Airway Lungs Heart ASA score ASA 1: a normal healthy patient ASA 2: a patient with a mild systemic disease (mid diabetes, controlled hypertension, obesity ASA 3: a patient with a severe systemic disease that limits activity (angina , COPD, prior Myocardial infarction) ASA 4: a patient with an incapacitating disease that is a constant threat to life (CHF, renal failure) ASA 5: a moribund patient not expected to survive 24 hrs. (ruptured aneurysm) ASA 6: a declared brain- patient whose organs are being harvested. For emergent operations, add the letter E after the classification Mallampati Classification Grade 2 Sedation Plan Analgesia, Amnesia, Plan communicated to team members, Discussed options with patient/fam, Discussed risks with patient/fam The patient is an appropriate candidate to undergo the planned procedure, sedation, and anesthesia. The patient immediately re-assessed prior to indication. JOSI WARD MD Feb 17, 2019 16:24
--- NOTE | 2019-02-17 16:25 | Progress Note-Pre Operative ---
Pre-Operative Progress Note H&P Reviewed The H&P was reviewed, patient examined and no changes noted. Date Seen by Provider: Feb 17, 2019 Time Seen by Provider: 16:20 Date H&P Reviewed: Feb 17, 2019 Time H&P Reviewed: 16:20 Pre-Operative Diagnosis: hx brochiectasis, hemoptysis and hematamesis with hx PUD JOSI WARD MD Feb 17, 2019 16:25
--- NOTE | 2019-02-17 17:11 | CONSULTATION REPORT ---
DATE OF SERVICE: ADMITTING PHYSICIAN: Dr. Maxwell. ATTENDING MANAGING DIRECTOR ATLAS: GRACE Doty at [facility] in [place], [place]. HISTORY: The patient is a 63-year-old female with history of bronchiectasis as well as recurrent pneumonia. Pulmonology has seen her in the past for Mycobacterium avium intracellulare and was treated for this recently. She states that the bronchiectasis was diagnosed approximately 20 years ago. She does have a history of smoking, but also was exposed to secondhand smoke as well as industrial smoke living in air pollution regions of [place]. She states that she has had greater than 20 episodes of pneumonia. She reported that she developed a cough and then developed hemoptysis. After this, she is unsure what happened; however, she then states that she had an episode of vomiting, which was blood. It is unsure if this was due to the hemoptysis and she was inadvertently swallowing the blood, which caused irritation and then the episode of hemoptysis. Upon further questioning, she does have a history of peptic ulcer disease and has been on Nexium for the past 10 years. She has not had any upper endoscopy done in the past. She did have a colonoscopy performed approximately 1 year ago in [place], [place] and states that this was what she believes this to be normal. PAST MEDICAL HISTORY: Bronchiectasis, COPD, history of brain aneurysm, gastroesophageal reflux disease, peptic ulcer disease. PAST SURGICAL HISTORY: Total hysterectomy in 2000. ALLERGIES: SULFA. MEDICATIONS: 1. Albuterol breathing treatments q.4 hours p.r.n. 2. Cetirizine 10 mg daily. 3. Nexium 20 mg daily. 4. Fluticasone propionate 16 grams spray. 5. Hydrochlorothiazide 25 mg daily. 6. Montelukast 10 mg daily. 7. Telmisartan 40 mg daily. SOCIAL HISTORY: Previous smoke, quit in 1993, 20 pack years. Negative alcohol. FAMILY HISTORY: She is adopted. REVIEW OF SYSTEMS: Well-nourished female, currently in no acute distress. She is not experiencing any shortness of breath or difficulty in breathing. No chest pain or palpitations. No diaphoresis. No nausea or vomiting since admission. She did have an episode of hemoptysis, followed by hematemesis on the day of admission two days ago. No red blood per rectum. No dark tarry stools. No fever or chills. No recent inadvertent weight loss. All other review of systems is negative. PHYSICAL EXAMINATION: VITAL SIGNS: Temperature 98.7, blood pressure 137/62, pulse 69, respirations 20, pulse ox 97% on room air. CHEST: Scattered rales and rhonchi bilaterally. HEART: Regular. No murmurs. EXTREMITIES: No lower extremity edema. Negative Homans sign. ABDOMEN: Soft, nontender and nondistended. HEENT: No scleral icterus. NECK: No cervical lymphadenopathy. SKIN: Warm and dry. LABORATORY DATA: WBC 19.3, hemoglobin 10.1, hematocrit 31 and platelets 265. BUN 13 and creatinine 0.75. ASSESSMENT AND PLAN: A 63-year-old female with history of bronchiectasis, COPD as well as multiple previous histories of pneumonia and recent infection with Mycobacterium avium intracellulare, status post treatment. She did have episodes of hemoptysis and this was followed by one or two episodes of hematemesis. She also does have a history of peptic ulcer disease and has been on Nexium for the past 10 years. During this admission, we will proceed with an EGD as well as biopsies as appropriate. Job ID: [id number] DocumentID: [id number] Dictated Date: 02/17/2019 16:21:59 Hospital Monitor Date: 02/17/2019 17:10:43 Dictated By: JOSI WARD MD
[2019-02-17] MEDS: MONTELUKAST 10 MG (SINGULAIR) TAB PO SCH (20:09)
[2019-02-17] MEDS: NAPROXEN 250 MG (NAPROSYN) TABLET PO PRN (20:10)
[2019-02-18] MEDS: PIPERACILLIN/TAZO 4.5 GM/NS 100 ML IV SCH ×6 (01:02→17:06)
[2019-02-18] MEDS: methylPREDNISolone 40 MG/ML (Solu-MEDROL) VIAL IV SCH ×3 (04:46→17:06)
--- NOTE | 2019-02-18 07:45 | Pulmonary Progress Note ---
Subjective Time Seen by a Provider: 07:44 Sepsis Event Evaluation Height, Weight, BMI Height: 5'6.00" Weight: 140lbs. 0.0oz. 63.187163km; 21.2 BMI Method: Exam Exam Vital Signs Date Time Temp Pulse Resp B/P (MAP) Pulse Ox O2 Delivery O2 Flow Rate FiO2 02/17/19 23:01 98.4 52 20 131/68 (89) 97 Room Air 02/17/19 20:50 Room Air 02/17/19 19:50 98.4 67 20 130/62 (84) 97 Room Air 02/17/19 19:42 98 Room Air 02/17/19 15:20 98.7 69 20 137/62 (87) 97 Room Air 02/17/19 14:29 58 21 Room Air 02/17/19 14:26 96 Room Air 02/17/19 14:00 58 21 Room Air 02/17/19 12:39 53 02/17/19 11:50 97.2 60 20 136/71 (92) 97 Room Air 02/17/19 09:00 97 Room Air I & O 02/18/19 06:59 Intake Total 1252 ml Output Total 1300 ml Balance -48 ml Height & Weight Height: 5'6.00" Weight: 140lbs. 0.0oz. 63.594446kx; 21.2 BMI Method: General Appearance: No Apparent Distress, WD/WN HEENT: Normal ENT Inspection Neck: Full Range of Motion, Normal Inspection, Non Tender Respiratory: Chest Non Tender, Lungs Clear, Normal Breath Sounds, No Accessory Muscle Use, No Respiratory Distress Cardiovascular: Regular Rate, Rhythm, No Edema, No Gallop, No JVD, No Murmur, Normal Peripheral Pulses Capillary Refill: Less Than 3 Seconds Gastrointestinal: normal bowel sounds, non tender, soft, no organomegaly, no pulsatile mass Extremity: Normal Capillary Refill, Normal Inspection, Normal Range of Motion, Non Tender, No Calf Tenderness, No Pedal Edema Neurologic/Psychiatric: Alert, Oriented x3, No Motor/Sensory Deficits, Normal Mood/Affect Skin: Normal Color, Warm/Dry Lymphatic: No Adenopathy Results Lab Laboratory Tests 02/17/19 03:45 Assessment/Plan Assessment/Plan PNA and hemoptysis r/o TB - Doubt TB -TB testing is negative -D/C isolation -Pt has hx of MAC not currently on treatment -S/P bronchoscopy-- await C&S -Continue Azithromycin, Zosyn -PPD pending Anemia -PT may need EGD josafat if hemoptysis continues -Will D/C lovenox -Check PT, PTT, and INR -Check occult stool Persistent sometimes productive cough -Robitussin AC -SVNS Hyperchloremia -SL IVF Mucous plugging - mucinex -SVNs COPDAE - Hx of moderate Emphysema -SVNs -montior -Solumedrol Anxiety -Will start Xanax for now Anemia -Monitor KALPESH ODONNELL DO Feb 18, 2019 07:45
[2019-02-18 08:00] VITALS: BP 177/79
[2019-02-18] MEDS: RT-ALBUTEROL/IPRATROPIUM 3 ML (DUONEB) VIAL IH SCH ×2 (08:07→14:55)
[2019-02-18] MEDS: LORATADINE (CLARITIN) 10 MG TAB PO SCH (08:21)
[2019-02-18] MEDS: FAMOTIDINE 20 MG (PEPCID) TABLET PO SCH (08:21)
[2019-02-18] MEDS: guaiFENesin (MUCINEX) 600 MG TAB PO SCH (08:21)
[2019-02-18] MEDS ORDERED: AZITHROMYCIN 250 MG TAB (ZITHROMAX) PO SCH (09:00)
--- NOTE | 2019-02-18 09:32 | Progress Note-Hospitalist ---
Subjective HPI/CC On Admission Date Seen by Provider: Feb 18, 2019 Time Seen by Provider: 09:45 The patient is a 63-year-old white female admitted by Dr. Mcdonough to the hospitalist service. She has a past history of MAC. She states that she took this or max from April 2017 through August 2018. She recently coughed up some blood which showed a alarmed Dr. Mcdonough. She states that since she had completed her course for treatment she has gained 15 pounds and feels better than she has in the past 5 years. Subjective/Events-last exam Patient will have EGD today Overall feels much better Dr. Mcdonough told her she has a right lower lobe pneumonia Had some blood come out of her mouth whether that was from lung or esophagus yesterday but none today Denies any pain Son at bedside Review of Systems Pulmonary: Cough Objective Exam Vital Signs Vital Signs Date Time Temp Pulse Resp B/P (MAP) Pulse Ox O2 Delivery O2 Flow Rate FiO2 02/18/19 08:08 95 Room Air 02/17/19 23:01 98.4 52 20 131/68 (89) Capillary Refill : Less Than 3 Seconds General Appearance: No Apparent Distress, WD/WN HEENT: Normal ENT Inspection Neck: Full Range of Motion, Normal Inspection, Non Tender Respiratory: Chest Non Tender, Lungs Clear, Normal Breath Sounds, No Accessory Muscle Use, No Respiratory Distress, Decreased Breath Sounds Cardiovascular: Regular Rate, Rhythm, No Edema, No Gallop, No JVD, No Murmur, Normal Peripheral Pulses Gastrointestinal: Normal Bowel Sounds, No Organomegaly, No Pulsatile Mass, Non Tender Back: Normal Inspection, No CVA Tenderness, No Vertebral Tenderness Extremity: Normal Capillary Refill, Normal Inspection, Normal Range of Motion, Non Tender, No Calf Tenderness, No Pedal Edema Neurologic/Psychiatric: Alert, Oriented x3, No Motor/Sensory Deficits, Normal Mood/Affect Skin: Normal Color, Warm/Dry Lymphatic: No Adenopathy Results/Procedures Lab Patient resulted labs reviewed. Assessment/Plan Assessment and Plan Assess & Plan/Chief Complaint Assessment: RLL Pneumonia and hemoptysis no TB Cough AECOPD Anxiety Anemia Plan: EGD Monitor hgb Diagnosis/Problems Diagnosis/Problems (1) Pneumonia of right lower lobe due to infectious organism Status: Acute (2) Hemoptysis Status: Acute (3) Hematemesis Status: Acute (4) Chronic bronchitis with COPD (chronic obstructive pulmonary disease) Status: Chronic Clinical Quality Measures DVT/VTE Risk/Contraindication: Risk Factor Score Per Nursin RFS Level Per Nursing on Admit: 4+=Very High MARTIN FARR DO Feb 18, 2019 09:32
--- NOTE | 2019-02-18 09:39 | Diagnostic Imaging Report ---
Indication: Lower respiratory infection Portable chest 8:17 AM There is some faint infiltrate present in the right lower lung. This is improved slightly from the previous day. Left lung remains clear. There is no effusion. Impression: Improving right lower lobe pneumonia. Dictated by: Dictated on workstation # [id number]
--- NOTE | 2019-02-18 14:56 | NUR ---
TO ENDO PER W/C.
[2019-02-18] MEDS ORDERED: LIDOCAINE JELLY 2% 6 ML SYRINGE ONE (15:04)
[2019-02-18] MEDS ORDERED: MIDAZOLAM 2 MG/2 ML (VERSED) VIAL ONE ×6 (15:04→15:20)
[2019-02-18] MEDS ORDERED: fentaNYL INJECTION 100 MCG/2 ML AMP ONE (15:04)
[2019-02-18] MEDS ORDERED: HURRICAINE EXT TUBE (BENZOCAINE) ONE (15:05)
[2019-02-18] MEDS ORDERED: NS IV 500 ML 500 ML IV PRN (15:45)
[2019-02-18] MEDS ORDERED: MIDAZOLAM 2 MG/2 ML (VERSED) VIAL IVP ONE (15:45)
[2019-02-18] MEDS ORDERED: LIDOCAINE JELLY 2% 6 ML SYRINGE MM PRN (15:45)
[2019-02-18] MEDS ORDERED: fentaNYL INJECTION 100 MCG/2 ML AMP IVP ONE (15:45)
[2019-02-18] MEDS ORDERED: HURRICAINE EXT TUBE (BENZOCAINE) XX PRN (15:45)
--- NOTE | 2019-02-18 15:45 | Progress Note-Post Operative ---
Post-Operative Progess Note Surgeon (s)/Transplant Immunologist (s) Surgeon JOSI WARD MD Transplant Immunologist: none Pre-Operative Diagnosis hx brochiectasis, hemoptysis and hematamesis with hx PUD Post-Operative Diagnosis reflux esophagitis(stage 2), moderate-large HH with small chidi ulcer, antral ulcer(3-4mm). Procedure & Operative Findings Date of Procedure 02/18/19 Procedure Performed/Findings EGD with bx. Anesthesia Type CS Estimated Blood Loss Estimated blood loss (mL): minimal Specimens/Packing Specimens Removed ge jxn, antral ulcer JOSI WARD MD Feb 18, 2019 15:44
[2019-02-18] MEDS ORDERED: SUCR1TAB36 PO (15:55)
[2019-02-18] MEDS ORDERED: PANT40TA2 PO (15:55)
--- NOTE | 2019-02-18 15:57 | Discharge Inst-Surgical ---
D/C Lap Instructions-KIDO New, Converted, or Re-Newed RX: RX on Chart Follow Up Appt in 2 weeks Activity as tolerated protonix 40mg daily, carafate 1g QID for 2 weeks then PRN High Fiber Diet 25g or more per day Avoid Alcohol, Caffeine, Spicy [place] and Acid foods. Drink 64 fluid oz or more of fluids per day. Symptoms to Report: Fever over 101 degree F, Nausea/Vomiting If any problems/questions: Contact your physician or go to Emergency Room JOSI WARD MD Feb 18, 2019 15:57
[2019-02-18 16:00] VITALS: BP 157/78
[2019-02-18] MEDS ORDERED: SUCRALFATE 1 GM (CARAFATE) TAB PO SCH (16:00)
--- NOTE | 2019-02-18 16:13 | NUR ---
RET'D FROM ENDO. EDUCATION ON PEPTIC ULCER/BLAND DIET. ORDER REC'D FROM DR. WARD FOR OK WITH DC PENDING ATTENDING. BOTH DR. ODONNELL AND DR. FARR NOTIFIED. WILL AWAIT DC ORDERS.
[2019-02-18] MEDS ORDERED: AMOX-358 PO (16:21)
--- NOTE | 2019-02-18 16:22 | Discharge Summary-Hospitalist ---
Diagnosis/Chief Complaint Date of Admission Feb 15, 2019 at 10:10 Date of Discharge Discharge Date: Feb 18, 2019 Admission Diagnosis Hemoptysis. Recent history of Mycobacterium avium complex. Discharge Diagnosis (1) Pneumonia of right lower lobe due to infectious organism Status: Acute (2) Hemoptysis Status: Acute (3) Hematemesis Status: Acute (4) Chronic bronchitis with COPD (chronic obstructive pulmonary disease) Status: Chronic (5) Antral ulcer Status: Acute Discharge Summary Discharge Physical Exam Allergies: Coded Allergies: Sulfa (Sulfonamide Antibiotics) (Unverified Allergy, Mild, 01/08/18) Vitals & I&Os Vital Signs Date Time Temp Pulse Resp B/P (MAP) Pulse Ox O2 Delivery O2 Flow Rate FiO2 02/18/19 16:00 98.1 55 20 157/78 (104) 96 Room Air 02/18/19 15:45 3 General Appearance: No Apparent Distress, WD/WN HEENT: No PERRL/EOMI, No TMs Normal, No Normal ENT Inspection, No Pharynx Normal, No Moist Mucous Membranes, No Pale Conjunctivae (L), No Pale Conjunctivae (R), No Pharyngeal Erythema, No Photophobia, No Scleral Icterus (L) , No Scleral Icterus (R), No TM Abnormal (L), No TM Abnormal (R), No Tonsillar Exudate, No Tonsillar Enlargement, No Other Respiratory: Chest Non Tender, Lungs Clear, Normal Breath Sounds, No Accessory Muscle Use, No Respiratory Distress Hospital Course Hospital course: patient had a lengthy course most of it in isolation due to r/ o TB. Patient had h/o MAC so DR Mcdonough was consulted and bronch performed so cultures grew Staph and nares were negative for MRSA. Patient required EGD by Dr Anderson due to hematemesis and that revealed antral ulcers so she was deemed stable to DC on PPI and Carafate and Augmentin for 5 more days with close f/u with Pulmonology. Labs (last 24 hrs) Laboratory Tests 02/18/19 07:25: 02/18/19 11:50: Stool Occult Blood Immunoassay NEGATIVE Microbiology 02/16/19 Gram Stain - Final, Resulted 02/16/19 Bronchial Culture - Preliminary, Resulted Staphylococcus aureus Usual upper respiratory vipul 02/16/19 Fungal Culture 1 - Preliminary, Resulted Patient resulted labs reviewed. Pending Labs Laboratory Tests 02/18/19 11:50: Stool Occult Blood Immunoassay NEGATIVE Discussion & Recommendations Discharge Planning: <30 minutes discharge planning Discharge Home Medications: Active Scripts Active Augmentin 875-125 Tablet (Amoxicillin/Potassium Clav) 1 Each Tablet 1 Each PO BID Carafate (Sucralfate) 1 Gm Tablet 1 Gm PO QID Protonix (Pantoprazole Sodium) 40 Mg Tablet.dr 40 Mg PO DAILY Reported Fluticasone Propionate 16 Gm [place].susp 1 [place] NS DAILY PRN Ketoconazole 120 Ml Shampoo TOP Q48H Albuterol Sulfate 2.5 Mg/3 Ml Vial.neb 3 Ml NEB Q4H PRN Breo Ellipta 100-25 Mcg INH (Fluticasone/Vilanterol) 1 Each Blst.w.dev 1 Puff INH DAILY Montelukast Sodium 10 Mg Tablet 10 Mg PO DAILY Probiotic (L.acidoph & Paracasei,B.lactis) 1 Each Capsule 1 Cap PO DAILY Viactiv Soft Chew Tablet (Ca Carbonate/Vitamin D3/Vit K) 1 Each Tab.chew 2 Tab.chew PO DAILY Cetirizine HCl 10 Mg Tablet 10 Mg PO DAILY Telmisartan 40 Mg Tablet 40 Mg PO DAILY Hydrochlorothiazide 25 Mg Tablet 25 Mg PO DAILY Instructions to patient/family Please see electronic discharge instructions given to patient. Clinical Quality Measures DVT/VTE Risk/Contraindication: Risk Factor Score Per Nursin RFS Level Per Nursing on Admit: 4+=Very High MARTIN FARR DO Feb 18, 2019 16:22
--- NOTE | 2019-02-18 16:23 | NUR ---
Learning Services Coordinator follow up with pt and her "boyfriend", Osmany. Pt was being transferred to 4th floor. She said the source of her bleeding may be ulcers. Offered active listening and compassionate presence.
--- NOTE | 2019-02-18 17:31 | NUR ---
VENKATESH DIET WITHOUT DIFFICULTY. RX AND INST AND VERBALIZED UNDERSTANDING. DC'D PER WC WITH STAFF.
--- NOTE | 2019-02-18 22:40 | OPERATIVE REPORT ---
DATE OF SERVICE: 02/18/2019 ATTENDING PRIMARY CUTTING AND PRINTING MACHINE OPERATOR: Sushila Porter APRN at [facility] in [place], [place]. PREOPERATIVE DIAGNOSES: Hemoptysis and hematemesis. POSTOPERATIVE DIAGNOSES: Reflux esophagitis stage II, moderate to large size hiatal hernia approximately 3 to 4 cm in size with a small Jose Carlos ulcer, which is healed and not bleeding. Moderate gastritis with a small antral ulcer approximately 3 to 4 mm in size. No active bleeding identified. Pylorus and duodenum appeared normal. PROCEDURE: EGD with biopsy. SURGEON: Josi Ward MD ANESTHESIA: Conscious sedation. ESTIMATED BLOOD LOSS: Minimal. FINDINGS: As above in the postoperative diagnosis. DISPOSITION: The patient tolerated the procedure well. INDICATIONS: The patient is a 63-year-old female with history of bronchiectasis as well as recurrent pneumonia. She has been seen by pulmonology in the past for Mycobacterium avium intracellulare and was treated recently for this. She states that she has had bronchiectasis diagnosed approximately 20 years ago as well. She does have a smoking history; however, also states that she was exposed to secondhand smoke and industrial smoke living in air polluted regions of [place]. She states that she has had a greater than 20 episodes of pneumonia. She developed a cough and then developed hemoptysis and after this, she is unsure what happened; however, states that she did have an episode of vomiting and felt that there was blood in this as well. She does have a history of peptic ulcer disease and has been taking Nexium for the past 10 years. She did have a colonoscopy performed approximately one year ago in [place], [place], and states that this was normal. DESCRIPTION OF PROCEDURE: The patient was brought to the endoscopy suite, laid in left lateral decubitus position with head slightly elevated. After adequate IV pain and sedative medications and conscious sedation anesthesia, the mouthpiece was applied. The endoscope was placed in the mouth, visualizing the pharynx and hypopharyngeal region. Vocal cords, epiglottis and vallecula identified and appeared to be normal. The endoscope was gently intubated at the esophageal opening and esophagus insufflated. The endoscope was then advanced to the first, second and third portions of the esophagus. At the level of the GE junction, a reflux esophagitis stage II identified. The GE junction was intrathoracic consistent with a hiatal hernia. Within the intrathoracic portion of the stomach, there was a small healed ulcer consistent with a previous Jose Carlos ulcer. A biopsy was taken of the GE junction with forceps with visualization of good hemostasis. The endoscope was then advanced through the stomach and endoscope retroflexed visualizing a hiatal hernia approximately 3 to 4 cm in size. A moderate severity gastritis was noted. There was also a small ulcer with overlying fibrin clot identified in the antral region approximately 3 to 4 mm in size. This was biopsied with forceps with visualization of good hemostasis. The endoscope was then advanced to the pylorus and the first and second portion of the duodenum, which appeared normal with no distal obstructions or any duodenal ulcerations. The endoscope was then slowly withdrawn while taking a second look and suctioning of residual air with no additional findings. The patient tolerated the procedure well. We will recommend medical management with the necessary lifestyle and diet accommodation including small and more frequent meals, avoidance of eating at night as well as head elevation while lying supine. She also needs to avoid caffeinated beverages, spicy, greasy and acidic foods. We feel that due to the significant sized hiatal hernia as well as the Jose Carlos and gastric ulcer, we will recommend up stronger PPI acid line erector apprentice and start Protonix 40 mg daily as well as Carafate 1 gram q.i.d. for the next two weeks. She also does have significant size hiatal hernia, which appears to be symptomatic as well. Due to the size of the hernia and her symptoms, she would be a candidate for a hiatal hernia repair. However, before proceeding with this, we had to rule out any esophageal dysmotility disorders with an esophageal manometry study. We will have her follow up in office in approximately 2 weeks. Job ID: [id number] DocumentID: [id number] Dictated Date: 02/18/2019 15:53:51 Scientific Programmer Analyst Date: 02/18/2019 22:39:46 Dictated By: JOSI WARD MD [facility] HOSPITALRadha
== END 2019-02-18 17:32 | disposition home or self-care (01) | DRG 193 ==
LOC: ICU 10:10 → 4TH 02-17 14:55
PROVIDERS: ADMIT Internal Medicine; ATTEND Internal Medicine
PROC: 0B938ZX Drainage of Right Main Bronchus, Via Natural or Artificial Opening Endoscopic, Diagnostic (ICD-10-PCS; principal; 2019-02-16)
PROC: 0B978ZX Drainage of Left Main Bronchus, Via Natural or Artificial Opening Endoscopic, Diagnostic (ICD-10-PCS; 2019-02-16)
PROC: 0DB48ZX Excision of Esophagogastric Junction, Via Natural or Artificial Opening Endoscopic, Diagnostic (ICD-10-PCS; 2019-02-18)
PROC: 0DB78ZX Excision of Stomach, Pylorus, Via Natural or Artificial Opening Endoscopic, Diagnostic (ICD-10-PCS; 2019-02-18)
DX: J18.9 Pneumonia, unspecified organism (principal); J44.0 Chronic obstructive pulmonary disease with (acute) lower respiratory infection; J44.1 Chronic obstructive pulmonary disease with (acute) exacerbation; K25.0 Acute gastric ulcer with hemorrhage; R04.2 Hemoptysis; K21.0 Gastro-esophageal reflux disease with esophagitis; K44.9 Diaphragmatic hernia without obstruction or gangrene; J98.09 Other diseases of bronchus, not elsewhere classified; D64.9 Anemia, unspecified; J30.2 Other seasonal allergic rhinitis; E87.8 Other disorders of electrolyte and fluid balance, not elsewhere classified; I10 Essential (primary) hypertension; F41.9 Anxiety disorder, unspecified; F32.9 Major depressive disorder, single episode, unspecified; H93.19 Tinnitus, unspecified ear; Z87.11 Personal history of peptic ulcer disease; Z87.891 Personal history of nicotine dependence; Z77.22 Contact with and (suspected) exposure to environmental tobacco smoke (acute) (chronic); Z77.29 Contact with and (suspected) exposure to other hazardous substances; Z86.19 Personal history of other infectious and parasitic diseases; Z86.79 Personal history of other diseases of the circulatory system
CPT/HCPCS: 36415; 71045; 80048; 80053; 81000; 82274; 83735; 83880; 84100; 85007; 85025; 85027; 85610; 85730; 86480; 87015; 87070; 87081; 87101; 87116; 87205; 87206; 94640; 94760

== ENCOUNTER → 2019-04-12 | Outpatient (CLI) | payer BC ==
[~2019-04-12] MED LIST changes: +ALBU2.5V4 NEB; +AMOX-358 PO; +ESOM20CA58 PO; +FLUT16SP22 NS; +FLUT1AER INH; +HOLD METFORMIN - RECEIVED CONTRAST 20 ML VIAL IV SCH; +IOHEXOL 350 MG/ML 100 ML (OMNIPAQUE 350) VIAL IV ONE; +KETO120S2 TOP; -LIDOCAINE JELLY 2% 6 ML SYRINGE TOP ONE; -LIDOCAINE PF 1% 2 ML VIAL (OR ONLY) IJ ONE; -LIDOCAINE PF 2% 5 ML (XYLOCAINE) VIAL INJ ONE; +MONT10TA24 PO; +NS 100 ML (IVPB) BAG IV ONE; +PANT40TA2 PO; +SUCR1TAB36 PO
[2019-04-12 08:44] LABS: BUN/CREATININE RATIO 9; CREATININE SERUM 0.77 MG/DL (0.60-1.30); GFR ESTIMATED > 60
[2019-04-12 12:28] LABS: BASOPHILS % (AUTO) 0 % (0-10); EOSINOPHILS % (AUTO) 1 % (0-10); HEMATOCRIT 38 % (35-52); HEMOGLOBIN 12.5 G/DL (11.5-16.0); LYMPHOCYTES # (AUTO) 0.7 X 10^3 (1.0-4.0); LYMPHOCYTES % (AUTO) 21 % (12-44); MEAN CORPUSCULAR HEMOGLOBIN 27 PG (25-34); MEAN CORPUSCULAR HGB CONC 33 G/DL (32-36); MEAN CORPUSCULAR VOLUME 82 FL (80-99); MEAN PLATELET VOLUME 10.6 FL (7.4-10.4); MONOCYTES # (AUTO) 0.5 X 10^3 (0.0-1.0); MONOCYTES % (AUTO) 13 % (0-12); NEUTROPHILS # (AUTO) 2.3 X 10^3 (1.8-7.8); NEUTROPHILS % (AUTO) 65 % (42-75); PLATELET COUNT 296 10^3/uL (130-400); RED CELL DISTRIBUTION WIDTH 13.9 % (10.0-14.5); WHITE BLOOD COUNT 3.5 10^3/uL (4.3-11.0)
--- NOTE | 2019-04-12 16:12 | Diagnostic Imaging Report ---
PROCEDURE: CT chest with contrast only. TECHNIQUE: Multiple contiguous axial images were obtained through the chest after administration of intravenous contrast. Auto Exposure Controls were utilized during the CT exam to meet ALARA standards for radiation dose reduction. INDICATION: Nodularity. COMPARISON: Exam compared with study 02/12/2019. FINDINGS: Five-lobed scattered tree-in-bud nodularity and infiltrates show a mild interval reduction but have not resolved. Some partial bronchiectasis in the right middle lobe with some associated chronic consolidation perifissural is also an unchanged finding. No dominant soft tissue density lung mass. No effusion or pneumothorax. No lymphadenopathy. Aorta is nonaneurysmal. IMPRESSION: Improvements in tree-in-bud and nodular interstitial infiltrates with no adverse interval development. Some chronic consolidation and bronchiectasis involving the perifissural right middle lobe, stable. No adverse development. Air trapping symmetric stable and chronic. Dictated by: Dictated on workstation # [id number]
== END ==
LOC: RAD 08:13
PROVIDERS: ATTEND Nurse Practitioner Family
DX: J18.1 Lobar pneumonia, unspecified organism (principal); J44.9 Chronic obstructive pulmonary disease, unspecified; R04.2 Hemoptysis; R91.1 Solitary pulmonary nodule; Z86.19 Personal history of other infectious and parasitic diseases; Z87.891 Personal history of nicotine dependence
CPT/HCPCS: 36415; 71260; 82565; 84520; 85025

== ENCOUNTER 2019-06-13 10:30 | Emergency (ER) | payer BC ==
[~2019-06-13] VITALS: Ht 167.6 cm; Wt 57.2 kg
[~2019-06-13 10:30] MED LIST changes: -CA C1TAB80 PO; -HOLD METFORMIN - RECEIVED CONTRAST 20 ML VIAL IV SCH; -IOHEXOL 350 MG/ML 100 ML (OMNIPAQUE 350) VIAL IV ONE; -NS 100 ML (IVPB) BAG IV ONE; +VIACTIV SOFT C1 EAC1 PO
[2019-06-13] MEDS ORDERED: NS IV 1000 ML 1,000 ML IV SCH (12:00)
--- NOTE | 2019-06-13 12:02 | ED Cough/URI ---
General Chief Complaint: Coughing up blood Stated Complaint: COUGHING UP BLOOD Nursing Triage Note: Patient reports coughing up blood x 3 days. patient reports being diagnosed with bleeding ulcer in February Sepsis Screen: No Definite Risk Source: patient, family History of Present Illness Date Seen by Provider: Jun 13, 2019 Time Seen by Provider: 12:00 Initial Comments This 63-year-old female presents with hemoptysis of 3 days' duration. Patient has had a small amount of old blood that she coughs up frequently throughout the day. The patient denies fever or chills. She's had no persistent or localized chest discomfort. Recent past medical history of significance includes a bleeding ulcer cared for by Dr. WARD. Patient is on Protonix and Carafate. She denies significant abdominal pain. She denies black or tarry stools. Patient denies history of bleeding disorder. Allergies and Home Medications Allergies Coded Allergies: Sulfa (Sulfonamide Antibiotics) (Unverified Allergy, Mild, 01/08/18) Home Medications Albuterol Sulfate 2.5 Mg/3 Ml Vial.neb, 3 ML NEB Q4H PRN for SHORTNESS OF BREATH, (Reported) Ca Carbonate/Vitamin D3/Vit K 1 Each Tab.chew, 2 TAB.CHEW PO DAILY, (Reported) Cetirizine HCl 10 Mg Tablet, 10 MG PO DAILY, (Reported) Fluticasone Propionate 16 Gm [place].susp, 1 [place] NS DAILY PRN for ALLERGIES, (Reported) Fluticasone/Vilanterol 1 Each Blst.w.dev, 1 PUFF INH DAILY, (Reported) Hydrochlorothiazide 25 Mg Tablet, 25 MG PO DAILY, (Reported) Ketoconazole 120 Ml Shampoo, TOP Q48H, (Reported) L.acidoph & Paracasei,B.lactis 1 Each Capsule, 1 CAP PO DAILY, (Reported) Montelukast Sodium 10 Mg Tablet, 10 MG PO DAILY, (Reported) Pantoprazole Sodium 40 Mg Tablet.dr, 40 MG PO DAILY Prescribed by: JOSI WARD on 02/18/191554 Sucralfate 1 Gm Tablet, 1 GM PO QID Prescribed by: JOSI WARD on 02/18/19 155 Telmisartan 40 Mg Tablet, 40 MG PO DAILY, (Reported) Patient Home Medication List Home Medication List Reviewed: Yes Review of Systems Review of Systems Constitutional: No chills, No fever EENTM: No hearing loss Respiratory: see HPI, cough, hemoptysis Cardiovascular: No chest pain, No edema, No palpitations Gastrointestinal: abdominal pain (LUQ); No dysphagia, No nausea, No vomiting Genitourinary: No decreased output, No dysuria, No frequency Musculoskeletal: No back pain Skin: No rash Psychiatric/Neurological: No Symptoms Reported Hematologic/Lymphatic: No Symptoms Reported Immunological/Allergic: no symptoms reported Past Ilgakft-Xyusjr-Yyouuh Hx Past Med/Social Hx: Reviewed Nursing Past Med/Soc Hx Patient Social History Alcohol Use: Denies Use Recreational Drug Use: No Smoking Status: Former Smoker Former Smoker, Quit: Jan 08, 1994 Recent Foreign Travel: No Contact w/Someone Who Travel: No Recent Infectious Disease Expo: No Recent Hopitalizations: No Physical Abuse: No Sexual Abuse: No Mistreated: No Fear: No Immunizations Up To Date Tetanus Booster (TDap): Unknown Date of Pneumonia Vaccine: Feb 03, 2017 Date of Influenza Vaccine: Aug 18, 2017 Seasonal Allergies Seasonal Allergies: Yes Past Medical History Surgeries: Yes Hysterectomy Respiratory: Yes Chronic Bronchitis, COPD Currently Using CPAP: No Currently Using BIPAP: No Cardiac: Yes Hypertension Neurological: Yes (hx of brain aneryusm) Reproductive Disorders: No Female Reproductive Disorders: Denies 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 0.0oz. 57.812292uy; 21.2 BMI Method:Stated General Appearance: WD/WN, no apparent distress Eyes: Bilateral Eye Normal Inspection HEENT: normal ENT inspection Neck: full range of motion, normal inspection Respiratory: lungs clear, normal breath sounds, no respiratory distress Cardiovascular: normal peripheral pulses, regular rate, rhythm, no murmur Gastrointestinal: normal bowel sounds, non tender, soft Extremities: normal range of motion, non-tender, normal inspection Neurologic/Psychiatric: no motor/sensory deficits, alert, normal mood/affect Skin: normal color, warm/dry Progress/Results/Core Measures Suspected Sepsis Recent Fever Within 48 Hours: No Infection Criteria Present: None New/Unexplained Altered Menta: No Sepsis Screen: No Definite Risk SIRS Temperature:98.0 Pulse: 81 Respiratory Rate: 16 Laboratory Tests 06/13/19 12:00: White Blood Count 6.5 Blood Pressure 159 /88 Mean: 111 Laboratory Tests 06/13/19 12:00: Creatinine 0.76, INR Comment 1.1, Platelet Count 307, Total Bilirubin 0.4 Results/Orders Lab Results Laboratory Tests Test 06/13/19 12:00 Range/Units White Blood Count 6.5 4.3-11.0 10^3/uL Red Blood Count 4.64 4.35-5.85 10^6/uL Hemoglobin 12.4 11.5-16.0 G/DL Hematocrit 37 35-52 % Mean Corpuscular Volume 80 80-99 FL Mean Corpuscular Hemoglobin 27 25-34 PG Mean Corpuscular Hemoglobin Concent 33 32-36 G/DL Red Cell Distribution Width 14.1 10.0-14.5 % Platelet Count 307 130-400 10^3/uL Mean Platelet Volume 9.3 7.4-10.4 FL Neutrophils (%) (Auto) 74 42-75 % Lymphocytes (%) (Auto) 15 12-44 % Monocytes (%) (Auto) 11 0-12 % Eosinophils (%) (Auto) 0 0-10 % Basophils (%) (Auto) 0 0-10 % Neutrophils # (Auto) 4.8 1.8-7.8 X 10^3 Lymphocytes # (Auto) 1.0 1.0-4.0 X 10^3 Monocytes # (Auto) 0.7 0.0-1.0 X 10^3 Eosinophils # (Auto) 0.0 0.0-0.3 10^3/uL Basophils # (Auto) 0.0 0.0-0.1 10^3/uL Prothrombin Time 14.3 12.2-14.7 SEC INR Comment 1.1 0.8-1.4 Sodium Level 136 135-145 MMOL/L Potassium Level 3.3 L 3.6-5.0 MMOL/L Chloride Level 100 98-107 MMOL/L Carbon Dioxide Level 22 21-32 MMOL/L Anion Gap 14 5-14 MMOL/L Blood Urea Nitrogen 7 7-18 MG/DL Creatinine 0.76 0.60-1.30 MG/DL Estimat Glomerular Filtration Rate > 60 BUN/Creatinine Ratio 9 Glucose Level 85 70-105 MG/DL Calcium Level 9.6 8.5-10.1 MG/DL Corrected Calcium 9.5 8.5-10.1 MG/DL Total Bilirubin 0.4 0.1-1.0 MG/DL Aspartate Amino Transf (AST/SGOT) 14 5-34 U/L Alanine Aminotransferase (ALT/SGPT) 14 0-55 U/L Alkaline Phosphatase 99 40-136 U/L Total Protein 7.5 6.4-8.2 GM/DL Albumin 4.1 3.2-4.5 GM/DL Lipase 126 H 8-78 U/L My Orders Orders - TELMA ZARCO MD Ct Chest/Abdomen/Pelvis W (06/13/19 11:49) Lipase (06/13/19 11:49) Cbc With Automated Diff (06/13/19 11:49) Comprehensive Metabolic Panel (06/13/19 11:49) Protime With Inr (06/13/19 11:49) Ns Iv 1000 Ml (Sodium Chloride 0.9%) (06/13/19 12:00) Vital Signs/I&O 06/13/19 10:43 Temp 98.0 Pulse 81 Resp 16 B/P (MAP) 159/88 (111) Pulse Ox 98 Capillary Refill : Less Than 3 Seconds Blood Pressure Mean: 111 Progress Note : Time: 14:[address] of the chest abdomen and pelvis demonstrated a tree and blood pattern on the chest CT suggestive of an infective process. Remainder of the CT exam demonstrated nonspecific findings that were not attributed to the present illness. Departure Impression Primary Impression: Hemoptysis Additional Impression: Bronchitis Disposition: 01 HOME, SELF-CARE Condition: Unchanged Departure-Patient Inst. Decision time for Depature: 14:27 Referrals: ANNAMARIA MEDRANO DO (PCP) Primary Care Physician ELVI JOHANSEN (Family) Primary Care Physician Patient Instructions: Acute Bronchitis, Adult (DC) Add. Discharge Instructions: Bactrim for bronchitis and Tussionex for cough. Close follow-up with Dr. Medrano. Return if any problems or questions. All discharge instructions reviewed with patient and/or family. Voiced understanding. TELMA ZARCO MD Jun 13, 2019 12:01
[2019-06-13 12:17] LABS: BASOPHILS % (AUTO) 0 % (0-10); EOSINOPHILS % (AUTO) 0 % (0-10); HEMATOCRIT 37 % (35-52); HEMOGLOBIN 12.4 G/DL (11.5-16.0); LYMPHOCYTES % (AUTO) 15 % (12-44); MEAN CORPUSCULAR HEMOGLOBIN 27 PG (25-34); MEAN CORPUSCULAR HGB CONC 33 G/DL (32-36); MEAN CORPUSCULAR VOLUME 80 FL (80-99); MEAN PLATELET VOLUME 9.3 FL (7.4-10.4); MONOCYTES # (AUTO) 0.7 X 10^3 (0.0-1.0); MONOCYTES % (AUTO) 11 % (0-12); NEUTROPHILS # (AUTO) 4.8 X 10^3 (1.8-7.8); NEUTROPHILS % (AUTO) 74 % (42-75); PLATELET COUNT 307 10^3/uL (130-400); RED CELL DISTRIBUTION WIDTH 14.1 % (10.0-14.5); WHITE BLOOD COUNT 6.5 10^3/uL (4.3-11.0)
[2019-06-13 12:28] LABS: INR 1.1 (0.8-1.4); PROTHROMBIN TIME PATIENT 14.3 SEC (12.2-14.7)
[2019-06-13 12:36] LABS: ALANINE AMINOTRANSFERASE 14 U/L (0-55); ALBUMIN 4.1 GM/DL (3.2-4.5); ALKALINE PHOSPHATASE 99 U/L (40-136); BILIRUBIN,TOTAL 0.4 MG/DL (0.1-1.0); BUN/CREATININE RATIO 9; CALCIUM 9.6 MG/DL (8.5-10.1); CARBON DIOXIDE 22 MMOL/L (21-32); CHLORIDE 100 MMOL/L (98-107); CREATININE SERUM 0.76 MG/DL (0.60-1.30); GFR ESTIMATED > 60; GLUCOSE 85 MG/DL (70-105); LIPASE 126 U/L (8-78); POTASSIUM 3.3 MMOL/L (3.6-5.0); SODIUM 136 MMOL/L (135-145); TOTAL PROTEIN 7.5 GM/DL (6.4-8.2)
--- NOTE | 2019-06-13 13:51 | Diagnostic Imaging Report ---
PROCEDURE: CT chest, abdomen, and pelvis with contrast. TECHNIQUE: Multiple contiguous axial images were obtained through the chest, abdomen, and pelvis after the administration of intravenous contrast. Auto Exposure Controls were utilized during the CT exam to meet ALARA standards for radiation dose reduction. INDICATION: Hemoptysis. Recent diagnosis of bleeding ulcer. COMPARISON: Multiple priors, most recent is a chest CT performed on 04/12/2019. FINDINGS: Chest: The trachea and main airways are patent, without evidence of tracheal or endobronchial lesion. There is no significant change in diffuse tree-in-bud opacities demonstrated throughout both lung marroquin. The overall appearance is similar to the most recent prior exam. There is unchanged consolidation containing bronchiectasis in the right middle lobe. No pleural effusion or pneumothorax. The visualized thyroid gland is unremarkable. Scattered borderline enlarged mediastinal lymph nodes are similar in appearance to prior exam. The largest is a top normal in size subcarinal lymph node which measures 10 mm in short axis diameter. The esophagus is nondistended. The heart is normal in size. There is trace pericardial fluid, similar in appearance to prior exam. The aorta is nonaneurysmal. The chest wall is unremarkable. No displaced rib fracture is identified. Abdomen and pelvis: The liver, spleen, gallbladder, pancreas, and adrenal glands are unremarkable. There is no biliary or pancreatic ductal dilatation. The kidneys are symmetric in size and demonstrate normal enhancement, without evidence of renal calculus, hydronephrosis, or suspicious renal mass. Incidental note is made of extrarenal pelves on both sides. No ureteral abnormality is demonstrated. The stomach is physiologically distended. There is suggestion of mild wall thickening in the fundus. Small bowel and colon are normal in course and caliber, without evidence of wall thickening or obstruction. There is marked colonic diverticulosis, without evidence of acute diverticulitis. The appendix is not definitely visualized. There are no findings to suggest acute appendicitis. No pneumoperitoneum, abdominal free fluid, or loculated collection. There is mild calcified atherosclerotic plaque involving the abdominal aorta, without aneurysmal dilatation. There is no evidence of venous thrombosis. No lymphadenopathy is appreciated. There is suggestion of mild circumferential bladder wall thickening. The bladder is not well-distended. The uterus is surgically absent. No pelvic free fluid or adnexal mass is appreciated. The abdominal wall is unremarkable. Mild degenerative changes involve the spine. No acute osseous abnormality is identified. Ill-defined sclerosis in the left proximal femur likely reflects bone infarct. IMPRESSION: Chest: No significant change in diffuse tree-in-bud opacities throughout both lung marroquin, likely reflecting infectious/inflammatory small airways process. There is unchanged consolidation/atelectasis with focal bronchiectasis in the right middle lobe. No new consolidation or mass is appreciated. Multiple prominent mediastinal lymph nodes are unchanged compared to the prior exam and are likely reactive in nature. Abdomen and pelvis: There is suggestion of mild wall thickening involving the gastric fundus. This may be secondary to underdistention, however, may reflect gastritis. There is suggestion of mild circumferential bladder wall thickening, which may be artifactual in nature secondary to underdistention. Recommend correlation with urinalysis to exclude acute cystitis. Otherwise, no acute abdominal or pelvic pathology is appreciated. Dictated by: Dictated on workstation # [id number]
[2019-06-13 14:33] VITALS: BP 157/90
== END 2019-06-13 14:44 | disposition home or self-care (01) ==
LOC: EDUNIT# 10:30 → ER 10:31
DX: J44.9 Chronic obstructive pulmonary disease, unspecified (principal); R04.2 Hemoptysis; I10 Essential (primary) hypertension; K21.9 Gastro-esophageal reflux disease without esophagitis; F41.9 Anxiety disorder, unspecified; F32.9 Major depressive disorder, single episode, unspecified; Z87.440 Personal history of urinary (tract) infections; Z88.2 Allergy status to sulfonamides; Z79.51 Long term (current) use of inhaled steroids; Z87.891 Personal history of nicotine dependence; Z90.710 Acquired absence of both cervix and uterus
CPT/HCPCS: 36415; 71260; 74177; 80053; 83690; 85025; 85610

== ENCOUNTER → 2019-06-18 | Outpatient (CLI) | payer BC ==
--- NOTE | 2019-06-18 10:40 | Diagnostic Imaging Report ---
PROCEDURE: US Gallbladder. TECHNIQUE: Multiple real-time grayscale images were obtained over the right upper quadrant in various projections. INDICATION: Right upper quadrant pain. FINDINGS: The liver is normal in size at 15.5 cm. No discrete liver mass is identified. The portal vein is patent and shows normal direction of flow. Gallbladder is without stones or sludge. No wall thickening or biliary duct dilatation is seen. The pancreas is unremarkable. Right kidney is without evidence of calculi or hydronephrosis. There is no ascites. IMPRESSION: Unremarkable gallbladder ultrasound. Dictated by: Dictated on workstation # [id number]
== END ==
LOC: RAD 08:13
PROVIDERS: ATTEND Surgery
DX: R10.11 Right upper quadrant pain (principal)
CPT/HCPCS: 76705

== ENCOUNTER → 2019-07-02 | Outpatient (CLI) | payer BC ==
[~2019-07-02] MED LIST changes: +CATHETER FLUSH 10 ML SYR IV PRN
--- NOTE | 2019-07-02 12:58 | Diagnostic Imaging Report ---
INDICATION: Right upper quadrant abdominal pain. COMPARISON: Ultrasound dated 06/18/2019. RADIOPHARMACEUTICAL: 5.10mCi Tc-99m Choletec IV TECHNIQUE: Anterior dynamic imaging for 1 hour. Additional 60 minute imaging was performed after the patient ingested an 8 ounce can of Ensure. FINDINGS: There is homogenous uptake throughout the liver. The gallbladder is visualized at 20minutes and small bowel at 15minutes. After ingesting an 8 ounce can of Ensure, there is contraction of the gallbladder with increased calculated GBEF at 80%. IMPRESSION: 1. No evidence of acute cholecystitis or common duct obstruction. 2. Gallbladder ejection fraction of 80%. This elevated gallbladder ejection fraction can be seen with biliary hyperkinesis. Dictated by: Dictated on workstation # [id number]
== END ==
LOC: CARD 10:10
PROVIDERS: ATTEND Surgery
DX: R10.11 Right upper quadrant pain (principal)
CPT/HCPCS: 78227

== ENCOUNTER 2019-07-23 09:52 | Emergency (ER) | payer BC | END 2019-07-23 13:27 | disposition home or self-care (01) | LOC: ER 09:52 ==

== ENCOUNTER → 2019-09-07 | Outpatient (CLI) | payer BC ==
[~2019-09-07] MED LIST changes: +HOLD METFORMIN - RECEIVED CONTRAST 20 ML VIAL IV SCH; +HYOS0.1283 SL; +IOHEXOL 350 MG/ML 100 ML (OMNIPAQUE 350) VIAL IV ONE; +NS 100 ML (IVPB) BAG IV ONE; +ONDA4TAB11 PO
[2019-09-07 10:36] LABS: BUN/CREATININE RATIO 14; CREATININE SERUM 0.77 MG/DL (0.60-1.30); GFR ESTIMATED > 60
--- NOTE | 2019-09-07 11:39 | Diagnostic Imaging Report ---
PROCEDURE: CT chest with contrast only. TECHNIQUE: Multiple contiguous axial images were obtained through the chest after administration of intravenous contrast. Auto Exposure Controls were utilized during the CT exam to meet ALARA standards for radiation dose reduction. INDICATION: Shortness of breath and productive cough. COMPARISON: Comparison made with prior examination from 06/13/2019. FINDINGS: There are essentially unchanged bilateral [id number]-type infiltrates. There is unchanged consolidation and bronchiectasis in the right middle lobe. There is no pleural effusion. There is a small pericardial effusion. There is no pneumothorax. The thoracic aorta is normal in caliber and without evidence of dissection. There are some scattered subcentimeter lymph nodes in the mediastinum. The visualized intra-abdominal structures are unremarkable. There are mild degenerative changes in the spine. IMPRESSION: 1. Unchanged bilateral tree-in-bud infiltrates as well as unchanged consolidation and bronchiectasis in the right middle lobe. 2. Trace pericardial effusion. 3. Scattered subcentimeter lymph nodes in the mediastinum. Dictated by: Dictated on workstation # [id number]
== END ==
LOC: RAD 09:57
PROVIDERS: ATTEND Nurse Practitioner Family
DX: J18.1 Lobar pneumonia, unspecified organism (principal); J47.9 Bronchiectasis, uncomplicated; J44.9 Chronic obstructive pulmonary disease, unspecified; J42 Unspecified chronic bronchitis; R91.8 Other nonspecific abnormal finding of lung field; Z86.19 Personal history of other infectious and parasitic diseases; Z87.891 Personal history of nicotine dependence
CPT/HCPCS: 36415; 71260; 82565; 84520

== ENCOUNTER → 2020-03-10 | Outpatient (CLI) | payer BC ==
[~2020-03-10] MED LIST changes: -CATHETER FLUSH 10 ML SYR IV PRN; -MONT10TA24 PO; +MONT10TA26 PO; -TELM40TA3 PO; +TELM40TA6 PO
[2020-03-10 12:39] LABS: CREATININE SERUM 0.78 MG/DL (0.60-1.30); GFR ESTIMATED > 60
[2020-03-10 12:40] LABS: BUN/CREATININE RATIO 15
--- NOTE | 2020-03-10 13:44 | Diagnostic Imaging Report ---
EXAMINATION: CT Chest with intravenous contrast. TECHNIQUE: Multiple contiguous axial images were obtained through the chest after the uneventful administration of intravenous contrast. All CT scans use one or more of the following dose optimizing techniques: automated exposure control, MA and/or KvP adjustment based on a patient size and exam type, or iterative reconstruction. HISTORY: COPD and shortness of breath. COMPARISON: 09/07/2019. FINDINGS: There is unchanged chronic right middle lobe collapse. There are scattered areas of bronchiectasis and mucous plugging with tree-in-bud nodules consistent with chronic bronchitis. No consolidation is seen. No pleural effusion. No pneumothorax. There is a new discrete 5 mm nodule in the right upper lobe (series 3, image 65). Heart size is normal. There are no coronary artery calcifications. There is an unchanged trace pericardial effusion. Aorta is normal in caliber. There is no axillary or supraclavicular lymphadenopathy. Mildly enlarged mediastinal lymph nodes are likely reactive to the chronic lung disease and are unchanged. Limited views of the upper abdomen are unremarkable. There are no suspicious osseus lesions. IMPRESSION: 1. Persistent scattered tree-in-bud nodules with bronchiectasis and mucous plugging in a pattern most consistent with chronic bronchitis. 2. Unchanged chronic collapse of the right middle lobe. 3. New discrete 5 mm right upper lobe nodule. According to the Fleischner Society guidelines: In a low risk patient, no routine follow up is recommended. In a high risk patient, consider optional CT at 12 months. Dictated by: Dictated on workstation # [id number]
== END ==
LOC: RAD 12:08
PROVIDERS: ATTEND Nurse Practitioner Family
DX: J44.9 Chronic obstructive pulmonary disease, unspecified (principal); R04.2 Hemoptysis; A31.0 Pulmonary mycobacterial infection; Z87.891 Personal history of nicotine dependence; R91.8 Other nonspecific abnormal finding of lung field; J98.09 Other diseases of bronchus, not elsewhere classified
CPT/HCPCS: 36415; 71260; 82565; 84520

== ENCOUNTER → 2020-03-13 | Outpatient (CLI) | payer BC ==
[~2020-03-13] MED LIST changes: -HOLD METFORMIN - RECEIVED CONTRAST 20 ML VIAL IV SCH; -IOHEXOL 350 MG/ML 100 ML (OMNIPAQUE 350) VIAL IV ONE; -NS 100 ML (IVPB) BAG IV ONE
[2020-03-13 11:09] LABS: BASOPHILS % (AUTO) 0 % (0-10); EOSINOPHILS # (AUTO) 0.1 10^3/uL (0.0-0.3); EOSINOPHILS % (AUTO) 1 % (0-10); HEMATOCRIT 38 % (35-52); HEMOGLOBIN 12.2 G/DL (11.5-16.0); LYMPHOCYTES # (AUTO) 1.1 X 10^3 (1.0-4.0); LYMPHOCYTES % (AUTO) 16 % (12-44); MEAN CORPUSCULAR HEMOGLOBIN 27 PG (25-34); MEAN CORPUSCULAR HGB CONC 33 G/DL (32-36); MEAN CORPUSCULAR VOLUME 83 FL (80-99); MONOCYTES # (AUTO) 0.5 X 10^3 (0.0-1.0); MONOCYTES % (AUTO) 6 % (0-12); NEUTROPHILS # (AUTO) 5.5 X 10^3 (1.8-7.8); NEUTROPHILS % (AUTO) 77 % (42-75); PLATELET COUNT 279 10^3/uL (130-400); RED CELL DISTRIBUTION WIDTH 13.8 % (10.0-14.5); WHITE BLOOD COUNT 7.2 10^3/uL (4.3-11.0)
[2020-03-13 11:20] LABS: INR 1.1 (0.8-1.4); PROTHROMBIN TIME PATIENT 14.1 SEC (12.2-14.7)
== END ==
LOC: LAB 10:39
PROVIDERS: ATTEND Internal Medicine Critical Care Medicine
DX: J44.9 Chronic obstructive pulmonary disease, unspecified (principal); R04.2 Hemoptysis; R91.8 Other nonspecific abnormal finding of lung field; Z87.891 Personal history of nicotine dependence
CPT/HCPCS: 36415; 84145; 85025; 85610; 85730

== ENCOUNTER → 2020-03-30 | Outpatient (CLI) | payer BC ==
[~2020-03-30] MED LIST changes: +RT-ALBUTEROL SULF 2.5 MG/3 ML PRE-MIX VIAL INH ONE; +RT-ALBUTEROL SULF 2.5 MG/3 ML PRE-MIX VIAL ONE
== END ==
LOC: RT 07:51
PROVIDERS: ATTEND Nurse Practitioner Family
DX: J44.9 Chronic obstructive pulmonary disease, unspecified (principal); J47.9 Bronchiectasis, uncomplicated; A31.0 Pulmonary mycobacterial infection; R04.2 Hemoptysis; Z87.891 Personal history of nicotine dependence
CPT/HCPCS: 94060; 94726; 94729

== ENCOUNTER → 2020-04-28 | Outpatient (CLI) | payer BC ==
[~2020-04-28] MED LIST changes: +CATHETER FLUSH 10 ML SYR IV PRN; +HOLD METFORMIN - RECEIVED CONTRAST 20 ML VIAL IV SCH; +IOHEXOL 350 MG/ML 100 ML (OMNIPAQUE 350) VIAL IV ONE; +KETO120S13 TOP; -KETO120S2 TOP; +NS 100 ML (IVPB) BAG IV ONE; -RT-ALBUTEROL SULF 2.5 MG/3 ML PRE-MIX VIAL INH ONE; -RT-ALBUTEROL SULF 2.5 MG/3 ML PRE-MIX VIAL ONE
[2020-04-28 10:18] LABS: BUN/CREATININE RATIO 13; CREATININE SERUM 0.77 MG/DL (0.60-1.30); GFR ESTIMATED > 60
--- NOTE | 2020-04-28 11:31 | Diagnostic Imaging Report ---
PROCEDURE: CT chest with contrast only. TECHNIQUE: Multiple contiguous axial images were obtained through the chest after administration of intravenous contrast. Auto Exposure Controls were utilized during the CT exam to meet ALARA standards for radiation dose reduction. INDICATION: Shortness of breath. FINDINGS: The recent CT chest exam of 03/10/2020 noted persistent scattered tree-in-bud nodules with bronchiectasis and mucous plugging. This could suggest chronic bronchitis. There is also chronic collapse of the right middle lobe. Those findings are again evident on this study and do not seem to have changed significantly. However, in the interval since the prior exam, an irregular 1.2 x 2.7 cm parenchymal lung mass has developed in the superior segment of the right lower lobe near the fissure. There are patchy alveolar/interstitial infiltrates in this region as well. I suspect that this parenchymal density is due to pneumonia/atelectasis and not neoplasm. There is also an area of increased density in the left infrahilar region (image 125 of 164). This too is probably secondary to pneumonia/atelectasis. A short-term (2-4) follow-up exam would recommended for continued evaluation. The overall appearance of the lungs has not changed significantly otherwise. The small 5 mm nodular density in the right upper lung noted on the previous study, however is not well appreciated on this exam. The heart size is stable and within normal limits. There are no coronary artery calcifications evident. The pericardial effusion evident on the prior study is again evident and perhaps slightly larger. The effusion now measures approximately 1.4 cm in maximum depth as opposed to 1.2 cm on the previous exam. The aorta is not abnormally dilated and there is no sign of a dissection. There is no defect within the pulmonary arteries to indicate pulmonary embolus. The mediastinal adenopathy noted on the prior study is again evident and not significantly changed. The thyroid gland is generally unremarkable. There is no obvious breast mass. The sections through the upper abdomen failed to show any sign of an acute abnormality. The bone windows are unremarkable for fracture or for destructive lesion. IMPRESSION: 1. The appearance of the chest has worsened since the prior exam as a prominent areas of increased density have developed in the superior segment of the right lower lobe and left infrahilar region. These findings are most likely due to pneumonia/atelectasis. Recommendations as above. 2. There is no acute cardiopulmonary abnormality noted otherwise. 3. The chronic pulmonary changes and the mediastinal adenopathy noted previously is again evident and essentially no different. 4. The small pericardial effusion seen previously is minimally larger on this exam. Dictated by: Dictated on workstation # [id number]
== END ==
LOC: RAD 09:40
PROVIDERS: ATTEND Internal Medicine Critical Care Medicine
DX: J44.9 Chronic obstructive pulmonary disease, unspecified (principal); R04.2 Hemoptysis; R91.8 Other nonspecific abnormal finding of lung field; Z87.891 Personal history of nicotine dependence; I31.3 Pericardial effusion (noninflammatory)
CPT/HCPCS: 36415; 71260; 82565; 84520

== ENCOUNTER → 2020-05-31 | Outpatient (CLI) | payer BC ==
--- NOTE | 2020-05-31 14:36 | Diagnostic Imaging Report ---
EXAMINATION: CT Chest with intravenous contrast. TECHNIQUE: Multiple contiguous axial images were obtained through the chest after the uneventful administration of intravenous contrast. All CT scans use one or more of the following dose optimizing techniques: automated exposure control, MA and/or KvP adjustment based on a patient size and exam type, or iterative reconstruction. HISTORY: COPD, chest discomfort. COMPARISON: 04/28/2020. FINDINGS: Again seen are fairly extensive tree-in-bud nodules with bronchiectasis and fibrosis of the right middle lobe. There is also mild bronchiectasis in the lingula. Previously seen area of consolidation in the superior segment of right lower lobe is resolved. No pleural effusion. No pneumothorax. No new nodules are seen. There is no axillary or supraclavicular lymphadenopathy. Prominent mediastinal lymph nodes are not enlarged by CT size criteria, but likely reactive. Heart size is normal. There are no coronary artery calcifications. There is a tiny pericardial effusion. Aorta is normal in caliber. Limited views of the upper abdomen are unremarkable. There are no suspicious osseus lesions. IMPRESSION: 1. Improvement in right lower lobe superior segment consolidation with persistent fairly extensive tree-in-bud nodules and chronic collapse and bronchiectasis of the right middle lobe and mild bronchiectasis in the lingula. Findings most likely related to chronic and bacterial infection such as with Mycobacterium avium complex. Dictated by: Dictated on workstation # [id number]
== END ==
LOC: RAD 13:23
PROVIDERS: ATTEND Nurse Practitioner
DX: J47.9 Bronchiectasis, uncomplicated (principal); R55 Syncope and collapse; R92.8 Other abnormal and inconclusive findings on diagnostic imaging of breast
CPT/HCPCS: 71260

== ENCOUNTER → 2020-08-04 | Outpatient (CLI) | payer BC ==
[~2020-08-04] MED LIST changes: -CATHETER FLUSH 10 ML SYR IV PRN; -HOLD METFORMIN - RECEIVED CONTRAST 20 ML VIAL IV SCH; -IOHEXOL 350 MG/ML 100 ML (OMNIPAQUE 350) VIAL IV ONE; -NS 100 ML (IVPB) BAG IV ONE
== END ==
LOC: LAB FS 10:58
PROVIDERS: ATTEND Nurse Practitioner Family
DX: R50.9 Fever, unspecified (principal); R05 Cough; Z20.828 Contact with and (suspected) exposure to other viral communicable diseases
CPT/HCPCS: 87070; 87205; U0002; 87635

== ENCOUNTER → 2020-08-09 | Outpatient (CLI) | payer BC ==
[~2020-08-09] MED LIST changes: +CATHETER FLUSH 10 ML SYR IV PRN; +HOLD METFORMIN - RECEIVED CONTRAST 20 ML VIAL IV SCH; +IOHEXOL 350 MG/ML 100 ML (OMNIPAQUE 350) VIAL IV ONE; +NS 100 ML (IVPB) BAG IV ONE
[2020-08-09 12:46] LABS: CREATININE SERUM 0.82 MG/DL (0.60-1.30); GFR ESTIMATED > 60
[2020-08-09 12:47] LABS: BUN/CREATININE RATIO 11
--- NOTE | 2020-08-09 14:13 | Diagnostic Imaging Report ---
PROCEDURE: CT chest with contrast only. TECHNIQUE: Multiple contiguous axial images were obtained through the chest after administration of intravenous contrast. Auto Exposure Controls were utilized during the CT exam to meet ALARA standards for radiation dose reduction. INDICATION: COPD, bronchitis, smoking history. COMPARISON: 05/31/2020 and 05/20/2017. FINDINGS: There is some chronic juxta fissural consolidation and regional varicoid bronchiectasis in the dependent right middle lobe. Diffuse bilateral air trapping is a redemonstrated finding. Tree-in-bud nodularity bilaterally in the left greater than right lower lobes as well as the right greater than left upper lobes does not appear significantly changed. No soft tissue density lung mass. No adenopathy. No effusion or empyema. Within the left lower lobe ectatic airways, there is now some mucoid impaction. No effusion. No pneumothorax. No adenopathy. No central PE. The aorta is nonaneurysmal. IMPRESSION: Mucoid impaction associated with some left lower lobe ectatic airways increased; otherwise, scattered tree-in-bud nodular infiltrates are unchanged. Some chronic volume loss, bronchiectasis, and consolidation in the juxta fissural dependent right middle lobe are stable. Dictated by: Dictated on workstation # [id number]
== END ==
LOC: RAD 13:15
PROVIDERS: ATTEND Internal Medicine Critical Care Medicine
DX: J47.9 Bronchiectasis, uncomplicated (principal); J18.1 Lobar pneumonia, unspecified organism; J98.4 Other disorders of lung; R91.8 Other nonspecific abnormal finding of lung field; Z87.891 Personal history of nicotine dependence
CPT/HCPCS: 36415; 71260; 82565; 84520

== ENCOUNTER 2020-08-15 09:27 | Outpatient (CLI) | payer BC ==
[~2020-08-15] VITALS: Ht 167 cm; Wt 57.7 kg
[~2020-08-15 09:27] MED LIST changes: -PANT40TA52 PO
[2020-08-15] MEDS ORDERED: PANT40TA52 PO (10:15)
== END 2020-08-15 10:29 ==
LOC: PREOP 09:27
PROVIDERS: ATTEND Internal Medicine Critical Care Medicine
DX: Z01.812 Encounter for preprocedural laboratory examination (principal); J44.9 Chronic obstructive pulmonary disease, unspecified; J18.9 Pneumonia, unspecified organism; R91.8 Other nonspecific abnormal finding of lung field; Z87.891 Personal history of nicotine dependence

== ENCOUNTER → 2020-08-15 | Outpatient (CLI) | payer BC ==
[~2020-08-15] MED LIST changes: -CATHETER FLUSH 10 ML SYR IV PRN; -HOLD METFORMIN - RECEIVED CONTRAST 20 ML VIAL IV SCH; -IOHEXOL 350 MG/ML 100 ML (OMNIPAQUE 350) VIAL IV ONE; -NS 100 ML (IVPB) BAG IV ONE; +PANT40TA52 PO
== END ==
LOC: LABNPT 08:57
PROVIDERS: ATTEND Internal Medicine Critical Care Medicine
DX: Z20.828 Contact with and (suspected) exposure to other viral communicable diseases (principal)
CPT/HCPCS: 87635

== ENCOUNTER 2020-08-16 06:45 | Day surgery (SDC) | payer BC ==
[~2020-08-16] VITALS: Ht 167 cm; Wt 57.7 kg
[2020-08-16] VITALS (13 sets, daily range): BP systolic 114–168; BP diastolic 65–86
[~2020-08-16 06:45] MED LIST changes: +PANT40TA52 PO
[2020-08-16] MEDS ORDERED: LIDOCAINE PF 2% 5 ML (XYLOCAINE) VIAL INJ ONE (06:46)
[2020-08-16] MEDS ORDERED: LIDOCAINE PF 1% 2 ML AMP IJ ONE (06:46)
[2020-08-16] MEDS ORDERED: LIDOCAINE JELLY 2% 6 ML SYRINGE MM ONE (06:46)
[2020-08-16] MEDS ORDERED: NS IV 500 ML 500 ML IV PRN (07:03)
[2020-08-16] MEDS ORDERED: NS IV 500 ML 500 ML ONE ×3 (07:08→08:12)
[2020-08-16] MEDS ORDERED: fentaNYL INJECTION 100 MCG/2 ML AMP IVP ONE (07:15)
[2020-08-16] MEDS ORDERED: MIDAZOLAM 5 MG/5 ML (VERSED) VIAL IV ONE (07:15)
[2020-08-16] MEDS ORDERED: proPOfol 200 MG/20 ML (DIPRIVAN) VIAL IV ONE ×2 (07:17→07:51)
[2020-08-16] MEDS ORDERED: MIDAZOLAM 2 MG/2 ML (VERSED) VIAL ONE (07:17)
[2020-08-16] MEDS ORDERED: GLYCOPYRROLATE 0.2 MG/ML (ROBINUL) 2 ML VIAL ONE (07:51)
[2020-08-16] MEDS ORDERED: NEOSTIGMINE 3 MG/3 ML VIAL ONE (07:51)
[2020-08-16] MEDS ORDERED: ONDANSETRON 4 MG/2 ML (SDV) Z0FRAN ONE (07:51)
[2020-08-16] MEDS ORDERED: ROCURONIUM 10 MG/ML 5 ML SYRINGE IV ONE (07:51)
[2020-08-16] MEDS ORDERED: fentaNYL INJECTION 100 MCG/2 ML AMP ONE (07:54)
[2020-08-16] MEDS ORDERED: SUGAMMADEX 500 MG/5 ML VIAL (BRIDION) IV ONE (08:10)
--- NOTE | 2020-08-16 08:49 | Anesthesia-General Post-Op ---
General Patient Condition Mental Status/LOC: Same as Preop Cardiovascular: Satisfactory Nausea/Vomiting: Absent Respiratory: Satisfactory Pain: Controlled Complications: Absent Post Op Complications Complications None Follow Up Care/Instructions Patient Instructions None needed. Anesthesia/Patient Condition Patient Condition Patient is doing well, significant coughing post-procedure which is to be expected, no complaints, stable vital signs, no apparent adverse anesthesia problems. DENISA HOGAN DO Aug 16, 2020 08:49
[2020-08-16] MEDS ORDERED: morphine INJ 10 MG/ML 1ML (SYR OR VIAL) IVP ONE (09:00)
[2020-08-16] MEDS ORDERED: ONDANSETRON 4 MG/2 ML (SDV) Z0FRAN IVP PRN (09:00)
--- NOTE | 2020-08-16 09:00 | Pulmonary Procedures ---
Pulmonary Procedures Date of Procedure Date of Service: Aug 16, 2020 Bronch Bronchoscopy with bronchoalveolar lavage (BAL), transbronchial washes and, brushes. Preop DX persistent chronic cough with worsening SOB and mucous plugging per CT of chest. Pt has hx of MAC. Postop DX: Very little mucous noted. No endobronchial lesions. Complications: none After informed consent obtained and formal time out pt was sedated and intubated per anesthesia. Bronchoscope was advanced through the ET tube. 1% lidocaine was used to anesthetize nahid, and left/right main stem bronchus. An anatomical tour was undertaken down to the segmental bronchi bilaterally. No endobronchial lesions noted. From the RML a bronchoalveolar lavage (BAL), bilateral washes were obtained. Pt tolerated procedure well. No complications noted. Stat CXR is pending. KALPESH ODONNELL DO Aug 16, 2020 09:00
--- NOTE | 2020-08-16 09:01 | Progress Note-Pre Operative ---
Pre-Operative Progress Note H&P Reviewed The H&P was reviewed, patient examined and no changes noted. Time Seen by Provider: 07:50 Date H&P Reviewed: Aug 16, 2020 Time H&P Reviewed: 07:00 Pre-Operative Diagnosis: mucous plugging worsening SOB. KALPESH ODONNELL DO Aug 16, 2020 09:01
--- NOTE | 2020-08-16 09:08 | Diagnostic Imaging Report ---
INDICATION: Post-bronchoscopy. Time of exam: 8:48 AM Correlation is made with prior chest of 02/18/2019. Heart size is stable. Lungs are hyperinflated consistent with COPD. There is some airspace infiltrate in the right base. No pneumothorax is identified, status post bronchoscopy. IMPRESSION: 1. Right basilar airspace opacity. No pneumothorax is identified, status post bronchoscopy. Dictated by: Dictated on workstation # [id number]
== END 2020-08-16 10:35 | disposition home or self-care (01) ==
LOC: ENDO 06:45
PROVIDERS: ATTEND Internal Medicine Critical Care Medicine
DX: R05 Cough (principal); R06.02 Shortness of breath; J43.9 Emphysema, unspecified; J98.09 Other diseases of bronchus, not elsewhere classified; F32.9 Major depressive disorder, single episode, unspecified; F41.9 Anxiety disorder, unspecified; K21.9 Gastro-esophageal reflux disease without esophagitis; I10 Essential (primary) hypertension; Z79.899 Other long term (current) drug therapy; Z87.19 Personal history of other diseases of the digestive system; Z86.19 Personal history of other infectious and parasitic diseases; Z87.01 Personal history of pneumonia (recurrent); Z88.2 Allergy status to sulfonamides; Z87.891 Personal history of nicotine dependence
CPT/HCPCS: 71045; 87015; 87070; 87101; 87116; 87205; 87206; 94640

== ENCOUNTER → 2020-12-21 | Outpatient (CLI) | payer BC ==
[~2020-12-21] MED LIST changes: +CATHETER FLUSH 10 ML SYR IV PRN; -ETHA400T29 PO; +ETHA400T31 PO; +HOLD METFORMIN - RECEIVED CONTRAST 20 ML VIAL IV SCH; +IOHEXOL 350 MG/ML 100 ML (OMNIPAQUE 350) VIAL IV ONE; -MONT10TA26 PO; +MONT10TA32 PO; +NS 100 ML (IVPB) BAG IV ONE
[2020-12-21 13:05] LABS: BUN/CREATININE RATIO 14; CREATININE SERUM 0.81 MG/DL (0.60-1.30); GFR ESTIMATED > 60
--- NOTE | 2020-12-21 14:33 | Diagnostic Imaging Report ---
PROCEDURE: CT chest with contrast only. TECHNIQUE: Multiple contiguous axial images were obtained through the chest after administration of intravenous contrast. Auto Exposure Controls were utilized during the CT exam to meet ALARA standards for radiation dose reduction. INDICATION: Productive cough Compared with chest CT 08/09/2020 and correlated with chest x-ray 08/16 also compared with a chest CT performed 12/11/2017. Chronic area of volume loss and varicoid bronchiectasis in the dependent juxta fissural right upper lobe anteroinferiorly is unchanged. Additional widely scattered tree-in-bud nodular infiltrates showed relative sparing of the pulmonary apices but are otherwise found diffusely and unchanged. Areas of airway thickening and mucoid impaction unchanged. No pneumothorax. No pneumomediastinum. The aorta is patent and nonaneurysmal. There is no pulmonary arterial embolus. There is background generalized air trapping present. The visualized upper abdomen nonacute. IMPRESSION: Scattered tree-in-bud nodular infiltrates. Chronic volume loss and consolidation with regional bronchiectasis right upper lobe dependently. Airway thickening and zones of mucoid impaction similar to the prior. Overall pattern raises the question of ABPA. No evidence for post bronchoscopy complication. No effusion or pneumothorax. Negative for PE. Dictated by: Dictated on workstation # [id number]
== END ==
LOC: RAD 12:32
PROVIDERS: ATTEND Nurse Practitioner Family
DX: R91.8 Other nonspecific abnormal finding of lung field (principal)
CPT/HCPCS: 36415; 71260; 82565; 84520

== ENCOUNTER → 2020-12-26 | Outpatient (CLI) | payer BC ==
[~2020-12-26] MED LIST changes: -CATHETER FLUSH 10 ML SYR IV PRN; -HOLD METFORMIN - RECEIVED CONTRAST 20 ML VIAL IV SCH; -IOHEXOL 350 MG/ML 100 ML (OMNIPAQUE 350) VIAL IV ONE; -NS 100 ML (IVPB) BAG IV ONE
--- NOTE | 2020-12-26 12:15 | Diagnostic Imaging Report ---
INDICATION: Postmenopausal. COMPARISON: None FINDINGS: The total T score for the spine is -3.2. This does indicate osteoporosis. The total T score for the right hip is -2.5 and to the left hip -3.7. The T score for the left femoral neck is -3.1 and for the right femoral neck -3.4. All of these values fall within the range of osteoporosis as well. AP Spine L1-L4: [BMD (g/cm2): 0.813] [T-Score: -3.2] [Z-Score: -1.4] [BMD Previous: NA] [BMD % Change: NA] LT Hip Neck: [BMD (g/cm2): 0.601] [T-Score: -3.1] [Z-Score: -1.5] LT Hip Total: [BMD (g/cm2):0.689] [T-Score:-2.5] [Z-Score: -1.2] [BMD Previous: NA] [BMD % Change: NA] RT Hip Neck: [BMD (g/cm2):0.568] [T-Score:-3.4] [Z-Score:-1.8] RT Hip Total: [BMD (g/cm2):0.539] [T-score:-3.7] [Z-Score:-2.4] [BMD Previous:NA] [BMD % Change:NA] *Indicates significant change from prior examination based on 95% confidence level. World Health Organization criteria for BMD interpretation classify patients as Normal (T-score at or above -1.0), Osteopenic (T-score between -1.0 and -2.5) or Osteoporotic (T-score at or below -2.5). LIMITATIONS AND MODIFICATION: None. FRACTURE RISK (FRAX SCORE): The ten year probability of (%): Major Osteoporotic Fracture: [17.7] Hip Fracture: [6.7] IMPRESSION: 1. There is osteoporosis of the spine and hips and the femoral necks. 2. 3. See below National Osteoporosis Foundation guidelines on when to potentially initiate pharmacologic therapy. Based on the National Osteoporosis Foundation Guidelines, pharmacologic treatment should be initiated in any of the following, unless clinical conditions suggest otherwise: * Any patient with prior fragility fracture of the hip or vertebrae. A spine fracture indicates 5X risk for subsequent spine fracture and 2X risk for subsequent hip fracture. * Osteoporosis (T-score <-2.5). * Postmenopausal women and men age 50 and older with low bone mass/osteopenia (T-score between -1.0 and -2.5) by DXA and 10-year major osteoporotic fracture greater than 20% or a 10-year probability of hip fracture greater than 3%. These fracture risks are supplied above in the FRAX score, if applicable. * Clinician judgement and/or patient preferences may indicate treatment for people with 10-year fracture probabilities above or below these levels. Dictated by: Dictated on workstation # [id number]
== END ==
LOC: RAD 11:00
PROVIDERS: ATTEND Nurse Practitioner
DX: Z13.820 Encounter for screening for osteoporosis (principal); M81.0 Age-related osteoporosis without current pathological fracture; Z78.0 Asymptomatic menopausal state
CPT/HCPCS: 77080

== ENCOUNTER 2021-01-18 11:05 | Outpatient (RCR) | payer BC ==
[2021-01-11 11:41] LABS: MAGNESIUM 2.1 MG/DL (1.6-2.4)
[2021-01-11 12:22] LABS: ALANINE AMINOTRANSFERASE 16 U/L (0-55); ALKALINE PHOSPHATASE 73 U/L (40-136); BILIRUBIN,TOTAL 0.2 MG/DL (0.1-1.0); BUN/CREATININE RATIO 13; CALCIUM 8.8 MG/DL (8.5-10.1); CARBON DIOXIDE 24 MMOL/L (21-32); CHLORIDE 95 MMOL/L (98-107); GFR ESTIMATED > 60; GLUCOSE 88 MG/DL (70-105); POTASSIUM 3.8 MMOL/L (3.6-5.0); SODIUM 129 MMOL/L (135-145); TOTAL PROTEIN 7.3 GM/DL (6.4-8.2)
[2021-01-18 11:37] LABS: ALANINE AMINOTRANSFERASE 15 U/L (0-55); ALKALINE PHOSPHATASE 80 U/L (40-136); BILIRUBIN,TOTAL 0.2 MG/DL (0.1-1.0); BUN/CREATININE RATIO 9; CALCIUM 9.1 MG/DL (8.5-10.1); CARBON DIOXIDE 25 MMOL/L (21-32); CHLORIDE 98 MMOL/L (98-107); CREATININE SERUM 0.79 MG/DL (0.60-1.30); GFR ESTIMATED > 60; GLUCOSE 92 MG/DL (70-105); MAGNESIUM 2.2 MG/DL (1.6-2.4); POTASSIUM 3.8 MMOL/L (3.6-5.0); SODIUM 132 MMOL/L (135-145); TOTAL PROTEIN 7.4 GM/DL (6.4-8.2)
== END 2021-03-28 | disposition home or self-care (01) ==
LOC: LAB 11:05
PROVIDERS: ATTEND Nurse Practitioner Family
DX: B44.1 Other pulmonary aspergillosis (principal)
CPT/HCPCS: 36415; 80053; 83735

== ENCOUNTER → 2021-01-24 | Outpatient (CLI) | payer BC ==
[2021-01-24 13:26] LABS: BASOPHILS % (AUTO) 0 % (0-10); EOSINOPHILS % (AUTO) 0 % (0-10); HEMATOCRIT 35 % (35-52); HEMOGLOBIN 11.6 g/dL (11.5-16.0); LYMPHOCYTES # (AUTO) 0.9 10^3/uL (1.0-4.0); LYMPHOCYTES % (AUTO) 14 % (12-44); MEAN CORPUSCULAR HEMOGLOBIN 27 pg (25-34); MEAN CORPUSCULAR HGB CONC 33 g/dL (32-36); MEAN CORPUSCULAR VOLUME 84 fL (80-99); MEAN PLATELET VOLUME 9.8 fL (9.0-12.2); MONOCYTES # (AUTO) 0.6 10^3/uL (0.0-1.0); MONOCYTES % (AUTO) 9 % (0-12); NEUTROPHILS # (AUTO) 4.8 10^3/uL (1.8-7.8); NEUTROPHILS % (AUTO) 76 % (42-75); PLATELET COUNT 293 10^3/uL (130-400); WHITE BLOOD COUNT 6.3 10^3/uL (4.3-11.0)
[2021-01-24 13:49] LABS: ALBUMIN 4.1 GM/DL (3.2-4.5); CHLORIDE 100 MMOL/L (98-107); SODIUM 136 MMOL/L (135-145)
[2021-01-24 13:50] LABS: CALCIUM 9.2 MG/DL (8.5-10.1)
[2021-01-24 13:51] LABS: GLUCOSE 89 MG/DL (70-105)
[2021-01-24 13:52] LABS: TOTAL PROTEIN 7.6 GM/DL (6.4-8.2)
[2021-01-24 13:53] LABS: BILIRUBIN,TOTAL 0.1 MG/DL (0.1-1.0); CARBON DIOXIDE 26 MMOL/L (21-32)
[2021-01-24 13:55] LABS: ALKALINE PHOSPHATASE 87 U/L (40-136); CREATININE SERUM 0.76 MG/DL (0.60-1.30); GFR ESTIMATED > 60
[2021-01-24 13:56] LABS: BUN/CREATININE RATIO 12
[2021-01-24 13:58] LABS: ALANINE AMINOTRANSFERASE 13 U/L (0-55)
--- NOTE | 2021-01-24 14:06 | Diagnostic Imaging Report ---
EXAMINATION: PA and lateral chest at 1:31 p.m. INDICATION: Cough. The heart size is within normal limits and stable when compared to 08/16/2020. The previous exam did show vague area of increased density in the right lung base. The recent CT chest exam of 12/21/2020 also noted scattered tree-in-bud nodular infiltrates as well as chronic volume loss and consolidation with regional bronchiectasis in the right upper lobe. On this exam the right lung base does seem somewhat better aerated than on the prior study but there is still a vague area of increased density in the right infrahilar region. Also, in the interval since the prior study a faint alveolar/interstitial infiltrate has developed in the left lung base near the left heart border. This finding is worrisome for pneumonia/atelectasis. A lateral view shows a new sign of a pleural effusion. The mediastinum is not widened. The osseous structures are intact. IMPRESSION: 1. The right lung base does seem better aerated than on the prior exam but there is still a vague area of increased density in this region which may be related to pneumonia/atelectasis. A small amount of pneumonia/atelectasis is also developed in the left lung base. A follow-up study would be recommended for continued evaluation. Dictated by: Dictated on workstation # [id number]
== END ==
LOC: RAD 13:10
PROVIDERS: ATTEND Nurse Practitioner Family
DX: J47.9 Bronchiectasis, uncomplicated (principal); B44.1 Other pulmonary aspergillosis
CPT/HCPCS: 36415; 71046; 80053; 83735; 85025

== ENCOUNTER → 2021-03-01 | Outpatient (CLI) | payer BC ==
[~2021-03-01] MED LIST changes: +HOLD METFORMIN - RECEIVED CONTRAST 20 ML VIAL IV SCH; +IOHEXOL 350 MG/ML 100 ML (OMNIPAQUE 350) VIAL IV ONE; +NS 100 ML (IVPB) BAG IV ONE
--- NOTE | 2021-03-01 13:15 | Diagnostic Imaging Report ---
EXAMINATION: CT chest with intravenous contrast. TECHNIQUE: Multiple contiguous axial images were obtained through the chest after the uneventful administration of intravenous contrast. All CT scans use one or more of the following dose optimizing techniques: automated exposure control, MA and/or KvP adjustment based on patient size and exam type or iterative reconstruction. HISTORY: Pneumonia. COMPARISON: 12/21/2020. FINDINGS: There is right middle lobe chronic collapse and bronchiectasis. There are diffuse tree-in-bud nodules throughout the lungs. The appearance is similar to prior study with slightly improved perhaps in the left lower lobe. No pleural effusion. No pneumothorax. There is no axillary or supraclavicular lymphadenopathy. There is no mediastinal lymphadenopathy. Heart size is normal. There are no coronary artery calcifications. There is a tiny pericardial effusion. Aorta is normal in caliber. Limited views of the upper abdomen are unremarkable. There are no suspicious osseous lesions. IMPRESSION: 1. Tree-in-bud nodules throughout both lungs with chronic areas of scarring in the right middle lobe and left lower lobe, similar to prior exam but perhaps slightly improved in the left lower lobe. Findings of interstitial chronic endobronchial infection such as with atypical mycobacterial species. Dictated by: Dictated on workstation # [id number]
== END ==
LOC: RAD 11:58
PROVIDERS: ATTEND Nurse Practitioner Family
DX: J18.9 Pneumonia, unspecified organism (principal); R91.8 Other nonspecific abnormal finding of lung field
CPT/HCPCS: 71260

== ENCOUNTER → 2021-04-17 | Outpatient (CLI) | payer BC ==
[~2021-04-17] MED LIST changes: -HOLD METFORMIN - RECEIVED CONTRAST 20 ML VIAL IV SCH; -IOHEXOL 350 MG/ML 100 ML (OMNIPAQUE 350) VIAL IV ONE; -NS 100 ML (IVPB) BAG IV ONE
--- NOTE | 2021-04-17 16:06 | Diagnostic Imaging Report ---
INDICATION: Pneumonia PA and lateral chest Comparison is made to a study from 01/24/2021. There is right perihilar infiltrate that is not appreciably changed from 01/24/2021. There is some left infrahilar infiltrate that has improved. IMPRESSION: Improving infiltrate in the left lung. Stable appearing infiltrate in the right lung. Dictated by: Dictated on workstation # [id number]
== END ==
LOC: RAD 15:37
PROVIDERS: ATTEND Nurse Practitioner Family
DX: J18.9 Pneumonia, unspecified organism (principal); R91.8 Other nonspecific abnormal finding of lung field
CPT/HCPCS: 71046

== ENCOUNTER → 2021-05-09 | Outpatient (CLI) | payer BC | LOC: LAB FS 14:10 | PROVIDERS: ATTEND Nurse Practitioner Family | DX: J47.9 Bronchiectasis, uncomplicated (principal) | CPT/HCPCS: 87070; 87205 ==

== ENCOUNTER → 2021-07-03 | Outpatient (CLI) | payer BC ==
[~2021-07-03] MED LIST changes: +RT-ALBUTEROL SULF 2.5 MG/3 ML PRE-MIX VIAL INH ONE
== END ==
LOC: RT 10:58
PROVIDERS: ATTEND Nurse Practitioner Family
DX: J47.9 Bronchiectasis, uncomplicated (principal)

== ENCOUNTER → 2021-08-28 | Outpatient (CLI) | payer BC, MEDICARE ==
[~2021-08-28] MED LIST changes: +CATHETER FLUSH 10 ML SYR IV PRN; +HOLD METFORMIN - RECEIVED CONTRAST 20 ML VIAL IV SCH; +IOHEXOL 350 MG/ML 100 ML (OMNIPAQUE 350) VIAL IV ONE; +NS 100 ML (IVPB) BAG IV ONE; -RT-ALBUTEROL SULF 2.5 MG/3 ML PRE-MIX VIAL INH ONE
[2021-08-28 13:29] LABS: CREATININE SERUM 0.78 MG/DL (0.60-1.30)
--- NOTE | 2021-08-28 15:15 | Diagnostic Imaging Report ---
EXAMINATION: CT chest with intravenous contrast. TECHNIQUE: Multiple contiguous axial images were obtained through the chest after the uneventful administration of intravenous contrast. All CT scans use one or more of the following dose optimizing techniques: automated exposure control, MA and/or KvP adjustment based on patient size and exam type or iterative reconstruction. HISTORY: Abnormal chest CT COMPARISON: 03/01/2021 FINDINGS: Again seen is tree-in-bud nodularity involving both lungs with chronic collapse of the right middle lobe and bronchiectasis in the right middle lobe. There is mucous plugging in the lingula. A more discrete nodule in the right lower lobe anterobasilar segment measures 1.3 x 1.8 cm, previously 1.2 x 1.6 cm. Overall the extent of tree-in-bud nodularity is similar to prior exam. No pleural effusion. No pneumothorax. There is no axillary or supraclavicular lymphadenopathy. There is a 12 mm subcarinal lymph node that is unchanged. Heart size is normal. There are no coronary artery calcifications. There is a small pericardial effusion, unchanged. Aorta is normal in caliber. Limited views of the upper abdomen are unremarkable. There are no suspicious osseus lesions. IMPRESSION: 1. Stable tree-in-bud nodules and mucus plugging consistent with a chronic endobronchial infection such as mycobacterium avium complex. 2. A more discrete nodule in the right lower lobe slightly bigger in size. Three-month followup recommended. Dictated by: Dictated on workstation # [id number]
== END ==
LOC: RAD 13:15
PROVIDERS: ATTEND Nurse Practitioner Family
DX: R91.8 Other nonspecific abnormal finding of lung field (principal)
CPT/HCPCS: 36415; 71260; 82565; 84520

== ENCOUNTER → 2021-11-29 | Outpatient (CLI) | payer MEDICARE ==
[~2021-11-29] MED LIST changes: +MONT-40 PO; -MONT10TA32 PO
[2021-11-29 11:24] LABS: ALBUMIN 4.1 GM/DL (3.2-4.5); BILIRUBIN,TOTAL 0.4 MG/DL (0.1-1.0); CALCIUM 9.3 MG/DL (8.5-10.1); CREATININE SERUM 0.76 MG/DL (0.60-1.30); TOTAL PROTEIN 7.8 GM/DL (6.4-8.2)
--- NOTE | 2021-11-29 15:33 | Diagnostic Imaging Report ---
PROCEDURE: CT chest with contrast only. TECHNIQUE: Multiple contiguous axial images were obtained through the chest after administration of intravenous contrast. Auto Exposure Controls were utilized during the CT exam to meet ALARA standards for radiation dose reduction. DATE: November 29, 2021. COMPARISON: CT chest August 28, 2021. INDICATION: 66-year-old female, follow-up right lower lobe pulmonary nodule. FINDINGS: There is multifocal tree-in-bud nodularity in the right upper lobe, right middle lobe, right lower lobe, left lower lobe and left upper lobe. There is right middle lobe bronchiectasis and scarring and/or atelectasis in the right middle lobe. The overall extent of tree-in-bud nodularity is essentially unchanged since August 28, 2021. This is most compatible with a process spreading via endobronchial means. The previously noted nodular area of consolidation in the right lower lobe on prior axial image 111 is essentially unchanged. This is somewhat curvilinear in appearance. There is also additional nodular consolidation in the more medial aspect of the right lower lobe which is new. This is best seen on axial image 123 and measures 2.7 x 1.8 cm in axial dimension. There is mild pleural parenchymal scarring in the lung apices. There is mild left lower lobe bronchiectasis. There is no pneumothorax. There is no pleural effusion. There is no identified pulmonary embolus. The main pulmonary artery diameter is within normal limits. The heart is not enlarged. There is no large pericardial effusion. There are AP window lymph nodes measuring up to 9 mm in short axis which are unchanged. There are additional subcentimeter short axis mediastinal lymph nodes. There is no identified abnormally enlarged axillary lymph node which meets CT size criteria for adenopathy. The imaged portions of the upper abdomen are unremarkable. There is advanced left glenohumeral arthritis. There is no identified acute bony abnormality. IMPRESSION: CT chest: 1. New nodular consolidation in the right lower lobe since prior CT chest on August 28, 2021. The previously noted additional area of peripheral nodular consolidation in the right lower lobe is unchanged. This consolidation may be infectious or inflammatory in etiology although neoplastic etiology is difficult to exclude. Short-term follow-up is recommended. 2. Redemonstrated extensive multifocal tree-in-bud nodularity most likely reflecting sequela of prior infectious bronchiolitis such as mycobacterium avium intracellare infection. 3. Right middle lobe and left lower lobe bronchiectasis again noted. Dictated by: Dictated on workstation # [id number]
== END ==
LOC: RT 10:45
PROVIDERS: ATTEND Nurse Practitioner
DX: J47.9 Bronchiectasis, uncomplicated (principal); R91.8 Other nonspecific abnormal finding of lung field; I10 Essential (primary) hypertension
CPT/HCPCS: 36415; 71260; 80053

== ENCOUNTER 2022-01-01 12:27 | Emergency (ER) | payer MEDICARE ==
[~2022-01-01] VITALS: Ht 167 cm; Wt 56.0 kg
[~2022-01-01 12:27] MED LIST changes: -CATHETER FLUSH 10 ML SYR IV PRN; -HOLD METFORMIN - RECEIVED CONTRAST 20 ML VIAL IV SCH; -IOHEXOL 350 MG/ML 100 ML (OMNIPAQUE 350) VIAL IV ONE; -NS 100 ML (IVPB) BAG IV ONE
[2022-01-01] MEDS ORDERED: RT-ALBUTEROL/IPRATROPIUM 3 ML (DUONEB) VIAL INH ONE (13:00)
[2022-01-01] MEDS ORDERED: predniSONE 20 MG TAB PO ONE (13:00)
--- NOTE | 2022-01-01 13:07 | Diagnostic Imaging Report ---
EXAMINATION: Chest, one view. HISTORY: Shortness of breath. COMPARISON: CT chest on 11/29/2021. Chest radiograph on 04/17/2021. FINDINGS: The lung volumes are normal. Scattered patchy opacities are seen in the right mid and lower lobe and left lung base. No large pleural effusion or pneumothorax is seen. The cardiomediastinal silhouette is normal in size and contour. No acute osseous abnormality is seen. IMPRESSION: 1. Scattered patchy opacities in the right mid and lower lobe and left lung base, likely representing infectious/inflammatory process. Dictated by: Dictated on workstation # [id number]
[2022-01-01 13:44] VITALS: BP 117/65
[2022-01-01] MEDS ORDERED: DOXYCYCLINE 100 MG (VIBRAMYCIN) TABLET PO SCH (13:45)
--- NOTE | 2022-01-01 13:50 | ED General ---
General Chief Complaint: General Problems/Pain Stated Complaint: SOB Nursing Triage Note: PT REPORTS SHE HAS COPD AND ITS STARTED ACTING UP ON HER THIS AM. REPORTS HER HEART STARTED RACING ABOUT 10AM, TOOK A BREATHING TX AT 0900. Source of Information: Patient Exam Limitations: No Limitations History of Present Illness Date Seen by Provider: Jan 01, 2022 Time Seen by Provider: 11:45 Initial Comments Patient is a 66-year-old female with history of COPD who presents with persistent cough hacking, shortness of breath increased anxiety and palpitations starting 2 hours prior to ED arrival. Patient took routine breathing treatment this morning. She is a non-smoker. She denies fever chills, nausea vomiting or sweats or URI symptoms. Reports chest tightness but denies chest pain. Symptoms feel similar to previous. Timing/Duration: 1-3 Hours Severity: Mild Modifying Factors: improves with Other Associated Systoms: Other Allergies and Home Medications Allergies Coded Allergies: Sulfa (Sulfonamide Antibiotics) (Unverified Allergy, Mild, 01/08/18) Patient Home Medication List Home Medication List Reviewed: Yes Albuterol Sulfate (Albuterol Sulfate) 2.5 Mg/3 Ml Vial.neb, 3 ML NEB Q4H PRN for SHORTNESS OF BREATH, (Reported) Entered as Reported by: KRYSTIAN COLEMAN on 02/15/19 1249 Cetirizine HCl (Cetirizine HCl) 10 Mg Tablet, 10 MG PO DAILY, (Reported) Entered as Reported by: EDSON HAMILTON on 01/08/18 1435 Fluticasone Propionate (Fluticasone Propionate) 16 Gm Cyril.susp, 1 SPRAY NS DAILY PRN for ALLERGIES, (Reported) Entered as Reported by: KRYSTIAN COLEMAN on 02/15/19 1257 Fluticasone/Vilanterol (Breo Ellipta 100-25 Mcg INH) 1 Each Blst.w.dev, 1 PUFF INH DAILY, (Reported) Entered as Reported by: KRYSTIAN COLEMAN on 02/15/19 1249 L.acidoph & Paracasei,B.lactis (Probiotic) 1 Each Capsule, 1 CAP PO DAILY, (Reported) Entered as Reported by: EDSON HAMILTON on 01/08/18 1435 Montelukast Sodium (Montelukast Sodium) 10 Mg Tablet, 10 MG PO DAILY, (Reported) Entered as Reported by: KRYSTIAN COLEMAN on 02/15/19 1249 Pantoprazole Sodium (Pantoprazole Sodium) 40 Mg Tablet.dr, 40 MG PO DAILY, (Reported) Entered as Reported by: ERNESTO RAMSEY on 08/15/20 1015 Telmisartan (Telmisartan) 40 Mg Tablet, 40 MG PO DAILY, (Reported) Entered as Reported by: EDSON HAMILTON on 01/08/18 1435 Review of Systems Review of Systems Constitutional: see HPI EENTM: see HPI Respiratory: see HPI Cardiovascular: see HPI Gastrointestinal: see HPI Genitourinary: see HPI Musculoskeletal: see HPI Skin: see HPI Psychiatric/Neurological: See HPI Hematologic/Lymphatic: See HPI Immunological/Allergic: see HPI All Other Systems Reviewed Negative Unless Noted: Yes Past Gwoomxz-Hxqqyi-Cunqmd Hx Patient Social History Tobacco Use?: Yes Tobacco type used: Cigarettes Smoking Status: Former Smoker Use of E-Cig and/or Vaping dev: No Substance use?: No Alcohol Use?: No Pt feels they are or have been: No Immunizations Up To Date Tetanus Booster (TDap): Unknown Seasonal Allergies Seasonal Allergies: Yes Past Medical History Surgery/Hospitalization HX: COPD Surgeries: Yes Hysterectomy Respiratory: Yes Chronic Bronchitis, COPD Currently Using CPAP: No Currently Using BIPAP: No Cardiac: Yes Hypertension Neurological: Yes (hx of brain aneryusm) Reproductive Disorders: No Female Reproductive Disorders: Denies [employer]PER[employer]ING History: Hysterectomy Sexually Transmitted Disease: No HIV/AIDS: No Genitourinary: Yes UTI-Chronic Gastrointestinal: Yes (hernia) Gastroesophageal Reflux Musculoskeletal: No Endocrine: No HEENT: No Tinnitis Loss of Vision: Denies Hearing Impairment: Denies Cancer: No Psychosocial: Yes Anxiety, Depression Integumentary: No Blood Disorders: No Adverse Reaction/Blood Tranf: No Physical Exam Vital Signs Vital Signs - First Documented 01/01/22 12:35 Temp 36.5 Pulse 97 Resp 24 B/P (MAP) 130/82 (98) Pulse Ox 97 O2 Delivery Room Air Capillary Refill : Less Than 3 Seconds Height, Weight, BMI Height: 5'6.00" Weight: 126lbs. 0.0oz. [id number]; 20.00 BMI Method:Stated General Appearance: Anxious Eyes: Bilateral Eye Normal Inspection, Bilateral Eye PERRL, Bilateral Eye EOMI HEENT: PERRL/EOMI, Pharynx Normal, Moist Mucous Membranes Neck: Non Tender, Supple Respiratory: Decreased Breath Sounds, Rhonci Cardiovascular: Regular Rate, Rhythm, No Edema Gastrointestinal: Non Tender, Soft Back: Normal Inspection, No CVA Tenderness Neurologic/Psychiatric: Oriented x3, Normal Mood/Affect Focused Exam Sepsis Stage: Ruled Out Progress/Results/Core Measures Suspected Sepsis SIRS Temperature: Pulse: 97 Respiratory Rate: 24 Blood Pressure 130 /82 Mean: 98 Results/Orders My Orders Orders - FERNIE WAY DO Chest 1 View Ap/Pa Only (01/01/22 12:48) Albuterol/Ipra Inhalation Soln (Duoneb I (01/01/22 13:00) Svn Small Volume Nebulizer (01/01/22 12:48) Dexamethasone Injection (Decadron Injec (01/01/22 13:00) Doxycycline Hyclate Tablet (Vibramycin T (01/01/22 13:45) Medications Given in ED Current Medications Medications Dose Ordered Sig/Wilfredo Route Start Time Stop Time Status Last Admin Dose Admin Albuterol/ Ipratropium 3 ml ONCE ONCE INH 01/01/22 13:00 01/01/22 13:01 DC 01/01/22 13:10 3 ML Dexamethasone Sodium Phosphate 8 mg ONCE ONCE IV 01/01/22 13:00 01/01/22 13:01 DC 01/01/22 13:10 8 MG Vital Signs/I&O 01/01/22 12:35 Temp 36.5 Pulse 97 Resp 24 B/P (MAP) 130/82 (98) Pulse Ox 97 O2 Delivery Room Air Capillary Refill : Less Than 3 Seconds Blood Pressure Mean: 98 Departure Communication (Admissions) Chest x-ray: Scattered opacities. Patient with clinical COPD exacerbation with scarring scarring on checks x-ray, limiting interpretation. Decadron, DuoNeb and antibiotics given with clinical improvement. Patient less anxious with normal O2 saturation and improved respiratory rate. We will continued supportive care with PCP follow-up. Return precautions with the patient verbalizes understanding agreement discharge instructions prior to departure. Impression Primary Impression: COPD with acute exacerbation Disposition: HOME, SELF-CARE Condition: Stable Departure-Patient Inst. Decision time for Depature: 13:55 Referrals: NO,LOCAL PHYSICIAN (PCP) Primary Care Physician ELVI JOHANSEN (Family) Primary Care Physician Patient Instructions: Chronic Obstructive Pulmonary Disease (COPD) (DC) Add. Discharge Instructions: You were evaluated in the emergency department for COPD. Chest x-ray was performed and shows the possibility of pneumonia please take newly prescribed medications as directed and follow-up with your amortization clerk as scheduled. Return to the ED if new or worsening symptoms peer All discharge instructions reviewed with patient and/or family. Voiced understanding. Scripts Albuterol Sulfate (Proventil Hfa) 6.7 Gm Hfa.aer.ad 6.7 GM INH Q6H, #1 GM Prov: FERNIE WAY DO 01/01/22 Methylprednisolone (Methylprednisolone Dose Pack) 4 Mg Tablet 4 MG PO UD for 6 Days, #21 TAB FOLLOW DOSE PACK INSTRUCTIONS Prov: FERNIE WAY DO 01/01/[address] DO Jan 01, 2022 13:49
[2022-01-01] MEDS ORDERED: ALBU6.7H8 INH (13:57)
[2022-01-01] MEDS ORDERED: METH4TAB11 PO (13:57)
[2022-01-01] MEDS ORDERED: DOXY100T2 PO (13:59)
== END 2022-01-01 14:12 | disposition home or self-care (01) ==
LOC: EDUNIT# 12:27 → ER FS 12:28
DX: J44.1 Chronic obstructive pulmonary disease with (acute) exacerbation (principal); Z87.891 Personal history of nicotine dependence
CPT/HCPCS: 71045

== ENCOUNTER → 2022-01-04 | Outpatient (CLI) | payer MEDICARE ==
[~2022-01-04] MED LIST changes: +ALBU6.7H8 INH; +DOXY100T2 PO; +METH4TAB11 PO
--- NOTE | 2022-01-04 15:39 | Diagnostic Imaging Report ---
PROCEDURE: CT abdomen without contrast. TECHNIQUE: Multiple contiguous axial images were obtained through the abdomen without the use of intravenous contrast. Auto Exposure Controls were utilized during the CT exam to meet ALARA standards for radiation dose reduction. INDICATION: Left upper quadrant pain. COMPARISON: Prior CT from 07/23/2019. FINDINGS: Imaging through the lung bases demonstrate some mild impacted bronchials in the left lower lobe. Tree-in-bud opacities in the left lower lobe, as well as portions of the right middle lobe and right lower lobe, are also noted. Small amount of pericardial fluid noted. The liver and gallbladder are unremarkable. The spleen is unremarkable. The pancreas, adrenal glands and kidneys are unremarkable. The aorta is nonaneurysmal. Bowel loops are nonobstructed. There is no free fluid or fluid collection. Bony structures appear nonacute. IMPRESSION: 1. Pericardial effusion. 2. There appears to be some mucous impaction involving The left lower lobe bronchials. There are also tree-in-bud opacities in bilateral lower lobes, as well as lingula and right middle lobe, again consistent with small airway infectious process. 3. No acute feature in the abdomen is identified. Dictated by: Dictated on workstation # [id number]
== END ==
LOC: RAD 14:45
PROVIDERS: ATTEND Surgery
DX: I31.3 Pericardial effusion (noninflammatory) (principal); R10.12 Left upper quadrant pain
CPT/HCPCS: 74150

== ENCOUNTER 2022-01-10 09:06 | Outpatient (CLI) | payer MEDICARE ==
[~2022-01-10] VITALS: Ht 167.6 cm; Wt 58.2 kg
[2022-01-10] MEDS ORDERED: FAMO20TA3 PO (13:32)
[2022-01-10] MEDS ORDERED: SUCR1TAB36 PO (13:32)
== END 2022-01-10 15:02 | disposition home or self-care (01) ==
LOC: PREOP 09:06
PROVIDERS: ATTEND Surgery
DX: Z01.818 Encounter for other preprocedural examination (principal)

== ENCOUNTER 2022-01-16 12:26 | Day surgery (SDC) | payer MEDICARE ==
[~2022-01-16] VITALS: Ht 167.6 cm; Wt 58.2 kg
[~2022-01-16 12:26] MED LIST changes: +FAMO20TA3 PO
[2022-01-16] MEDS ORDERED: LACTATED RINGERS 1,000 ML IV STA (12:31)
[2022-01-16 12:50] VITALS: BP 155/79
--- NOTE | 2022-01-16 12:52 | Progress Note-Pre Operative ---
Pre-Operative Progress Note H&P Reviewed The H&P was reviewed, patient examined and no changes noted. Date Seen by Provider: Jan 16, 2022 Time Seen by Provider: 12:30 Date H&P Reviewed: Jan 16, 2022 Time H&P Reviewed: 12:30 Pre-Operative Diagnosis: GERD, dysphagia JOSI WARD MD Jan 16, 2022 12:52
[2022-01-16] MEDS ORDERED: OMEP40CA6 PO (12:53)
--- NOTE | 2022-01-16 12:53 | Discharge Inst-Surgical ---
D/C Lap Instructions-KIDO New, Converted, or Re-Newed RX: RX on Chart Follow Up Activity as tolerated High Fiber Diet 25g or more per day Avoid Alcohol, Caffeine, Spicy Porter and Acid foods. Drink 64 fluid oz or more of fluids per day. Symptoms to Report: Fever over 101 degree F, Nausea/Vomiting If any problems/questions: Contact your physician or go to Emergency Room JOSI WARD MD Jan 16, 2022 12:53
[2022-01-16] MEDS ORDERED: RT-ALBUTEROL SULF 2.5 MG/3 ML PRE-MIX VIAL ONE (12:54)
[2022-01-16] MEDS ORDERED: RT-ALBUTEROL SULF 2.5 MG/3 ML PRE-MIX VIAL IH STA (12:58)
[2022-01-16] MEDS ORDERED: ONDANSETRON 4 MG/2 ML (SDV) Z0FRAN IVP PRN (13:00)
[2022-01-16] MEDS ORDERED: ONDANSETRON 4 MG (ZOFRAN) ORAL DISSOLVE TAB PO PRN (13:00)
[2022-01-16] MEDS ORDERED: PROPOFOL INJECTION 50 ML IV ONE (13:45)
[2022-01-16] MEDS ORDERED: MIDAZOLAM 2 MG/2 ML (VERSED) VIAL ONE (13:45)
[2022-01-16] MEDS ORDERED: LIDOCAINE JELLY 2% 6 ML SYRINGE ONE (13:59)
[2022-01-16] MEDS ORDERED: LIDOCAINE JELLY 2% 6 ML SYRINGE TOP ONE (14:15)
[2022-01-16 14:20] VITALS: BP 140/64
[2022-01-16 14:25] VITALS: BP 129/60
--- NOTE | 2022-01-16 14:30 | Progress Note-Post Operative ---
Post-Operative Progess Note Surgeon (s)/Manager Brand (s) Surgeon JOSI WARD MD Manager Brand: none Pre-Operative Diagnosis GERD, dysphagia Post-Operative Diagnosis reflux esophagitis(grade 3), mild distal esophageal stricture, moderate HH(3cm), moderate gastritis. Procedure & Operative Findings Date of Procedure 01/16/22 Procedure Performed/Findings EGD with bx and balloon dilatation. Anesthesia Type mac Estimated Blood Loss Estimated blood loss (mL): minimal Specimens/Packing Specimens Removed ge jxn, antrum JOSI WARD MD Jan 16, 2022 14:30
[2022-01-16 15:00] VITALS: BP 137/69
[2022-01-16 15:09] VITALS: BP 137/69
--- NOTE | 2022-01-16 15:58 | Anesthesia-General Post-Op ---
MAC Patient Condition Mental Status/LOC: Same as Preop Cardiovascular: Satisfactory Nausea/Vomiting: Absent Respiratory: Satisfactory Pain: Controlled Complications: Absent Post Op Complications Complications None Follow Up Care/Instructions Patient Instructions None needed. Anesthesiology Discharge Order Discharge Order Patient is doing well, no complaints, stable vital signs, no apparent adverse anesthesia problems. No complications reported per nursing. JOSSELINE LOPEZ CRNA Jan 16, 2022 15:58
--- NOTE | 2022-01-16 18:54 | OPERATIVE REPORT ---
DATE OF SERVICE: 01/16/2022 ATTENDING NICKER AND BREAKER: Sushila Porter APRN. PREOPERATIVE DIAGNOSES: Gastroesophageal reflux disease, dysphagia. POSTOPERATIVE DIAGNOSES: Reflux esophagitis, Shipman grade C, mild distal esophageal stricture, moderate size hiatal hernia approximately 3 cm in size, moderate gastritis. No distal obstructions. PROCEDURE: EGD with biopsy and balloon dilatation. SURGEON: Josi Ward MD ANESTHESIA: Monitored anesthesia care. ESTIMATED BLOOD LOSS: Minimal. FINDINGS: Same as postoperative diagnoses. DISPOSITION: The patient tolerated the procedure well. INDICATIONS: The patient is a 66-year-old female known to us. She has a history of recurrent pneumonia as well as bronchiectasis due to smoking as well as industrial smoke exposure. On 02/18/2019, she underwent an EGD and was found to have a reflux esophagitis grade B as well as a moderate size hiatal hernia, 3 cm in size as well as a small Jose Carlos ulcer and a small antral ulcer, which were not actively bleeding. Biopsies were negative for H. pylori; however, positive for Daugherty's esophagus. She reports that she has had some worsening reflux as well as dysphagia. She also states that after eating meals that she would experience nausea; however, no vomiting. DESCRIPTION OF PROCEDURE: The patient was brought to the endoscopy suite, laid in the left lateral decubitus position. After adequate IV pain and sedative medications and monitored anesthesia care, the mouthpiece was applied. The endoscope was placed in the mouth, visualizing the pharynx and hypopharyngeal region. Vocal cords, epiglottis and vallecula identified and appeared to be normal. Endoscope was then gently intubated the esophageal opening and esophagus insufflated. The endoscope was then advanced to the first, second and third portion of esophagus at the level of the GE junction; a reflux esophagitis, Shipman grade C identified as well as a mild distal esophageal stricture. A biopsy was taken with forceps with visualization of good hemostasis. The endoscope was then advanced into the stomach and endoscope retroflexed again visualizing a moderate size hiatal hernia approximately 3 cm in size. There was a moderate severity gastritis. No formal ulcerations, polyps, or any neoplasms. A biopsy was again taken of the antrum to rule out H. pylori with visualization of good hemostasis. The endoscope was then advanced to the pylorus and the first and second portion of the duodenum, which appeared normal with no distal obstructions or any ulcerations. The balloon was then placed in the stomach and pulled back to the area of stricture. We then proceeded with graded dilatation in a stepwise fashion from 2, 4 and then eventually 6 atmospheres of pressure or 20 mm in luminal diameter with moderate resistance and left this in place for 60 seconds. The balloon was then desufflated and removed with visualization of good hemostasis as well as no mucosal tears. Endoscope was then slowly withdrawn while taking a second look and suctioning of residual air with no additional findings. The patient tolerated the procedure well. We will recommend the necessary lifestyle and dietary accommodation including small and more frequent meals, avoidance of eating at night as well as head elevation while lying supine. She also needs to avoid caffeinated beverages, spicy, greasy and acidic foods. She is currently on Protonix and Pepcid and we will have her continue her Protonix; however, discontinue the Pepcid and start omeprazole 40 mg daily to be taken at a different time during the day. If she continues to have episodes of nausea as well as weight loss after eating meals, this may be a gallbladder etiology and we will proceed with further workup with noninvasive testing for a gallbladder etiology. Job ID: [id number] DocumentID: [id number] Dictated Date: 01/16/2022 14:25:17 Animal Sitter Date: 01/16/2022 18:53:15 Dictated By: JOSI WARD MD
== END 2022-01-16 15:30 | disposition home or self-care (01) ==
LOC: ENDO 12:26
PROVIDERS: ATTEND Surgery
DX: K21.00 Gastro-esophageal reflux disease with esophagitis, without bleeding (principal); K22.2 Esophageal obstruction; K44.9 Diaphragmatic hernia without obstruction or gangrene; K29.70 Gastritis, unspecified, without bleeding; Z87.891 Personal history of nicotine dependence
CPT/HCPCS: 94640